=== PATIENT | female | born 1960 | race African-American/Black ===

== ENCOUNTER 2017-01-21 11:59 | Inpatient (IN) | payer MEDICARE, OTHER ==
[~2017-01-21] VITALS: Ht 170.2 cm; Wt 108.4 kg
[~2017-01-21 11:59] MED LIST: ALBU2.5V14 NEB; AMLO5TAB4 PO; CARI350T PO; HYDR-971 PO; LEVO500T59 PO; LOSA100T2 PO; MOME13HF IH; NAPR500T8 PO; Nicotine TD; OXYC-327 PO; OXYC-328 PO; OXYC10TA45 PO; OXYC15TA PO; PRED50TA PO; PROAIR HFA8.5 GM IH; TRIA1CAP PO
[2017-01-21 13:00] VITALS: BP 138/92
[2017-01-21 14:49] VITALS: BP 132/97
[2017-01-21] MEDS ORDERED: oxyCODONE/APAP 7.5/325 1 TAB TABLET PO PRN (15:00)
[2017-01-21] MEDS ORDERED: HYDROcodone/APAP 5/325MG 1 TAB TABLET PO PRN ×2 (15:00→15:15)
[2017-01-21] MEDS ORDERED: NON FORMULARY ITEM (Albuterol Sulfate (Proair Hfa Inhaler) 2 PUFF) IH PRN (15:00)
[2017-01-21 15:11] LABS: BASO # 0.1 x10^3/uL (0.0-0.2); BASO % 1 % (0-3); EOS % 0 % (0-3); HEMOGLOBIN 12.1 g/dL (12.0-15.5); LYMPH # 7.5 x10^3/uL (1.0-4.8); LYMPH % 40 % (24-48); MEAN CORPUSCULAR HEMOGLOBIN 23 pg (25-35); MEAN CORPUSCULAR HGB CONC 31 g/dL (31-37); MEAN CORPUSCULAR VOLUME 75 fL (79-100); MONO % 7 % (0-9); NEUT % 52 % (31-73); PLATELET COUNT 418 x10^3/uL (140-400); RED CELL DISTRIBUTION WIDTH 22.3 % (11.5-14.5); WHITE BLOOD COUNT 18.7 x10^3/uL (4.0-11.0)
--- NOTE | 2017-01-21 15:12 | EKG ---
[facility] [address] [place] [address] Test Date: 2017-01-21 Test Time: 15:10:14 Pat Name: IRENE OLSEN Department: Room: 8 Gender: F Child Care Nurse: LYDIA : 1960 Requested By: LUIZ BENDER Order Number: [id number] Reading MD: Irving Hoffman Measurements Intervals [place] Rate: 88 P: 46 TN: 136 QRS: 59 QRSD: 90 T: 57 QT: 354 QTc: 432 Interpretive Statements SINUS RHYTHM QRS(T) CONTOUR ABNORMALITY CONSIDER ANTEROLATERAL MYOCARDIAL DAMAGE CONSIDER INFERIOR MYOCARDIAL DAMAGE POSSIBLY ABNORMAL ECG RI6.01 Compared to ECG 09/28/2015 11:00:52 Sinus tachycardia no longer present Left ventricular hypertrophy Electronically Signed On 01-22-2017 15:49:32 CDT by Irving Hoffman
[2017-01-21 15:16] VITALS: BP 132/97
[2017-01-21] MEDS: CARISOPRODOL 350 MG TABLET PO SCH (15:26)
[2017-01-21] MEDS: oxyCODONE/APAP 7.5/325 1 TAB TABLET PO PRN ×2 (15:26→21:01)
[2017-01-21] MEDS: LOSARTAN POTASSIUM 50 MG TABLET. PO SCH (15:26)
[2017-01-21] MEDS: NICOTINE 14MG PATCH. TD SCH (15:27)
[2017-01-21 15:28] LABS: ALBUMIN 3.4 g/dL (3.4-5.0); ALBUMIN/GLOBULIN RATIO 0.8 (1.0-1.7); CALCIUM 8.5 mg/dL (8.5-10.1); CREATININE 0.8 mg/dL (0.6-1.0); GFR 90.1; POTASSIUM 3.2 mmol/L (3.5-5.1); TOTAL BILIRUBIN 0.3 mg/dL (0.2-1.0); TOTAL PROTEIN 7.6 g/dL (6.4-8.2)
[2017-01-21] MEDS: IV NORMAL SALINE 1000ML BAG 1,000 ML IV SCH (15:37)
[2017-01-21] MEDS: methylPREDNISolone SOD SUCC PF 125 MG/2 ML VIAL. IV SCH ×2 (15:38→21:01)
[2017-01-21] MEDS: IPRATRPIUM/ALBUTEROL 0.5/2.5MG 3 ML NEBU. NEB SCH ×2 (15:44→19:48)
--- NOTE | 2017-01-21 15:44 | RAD ---
Chest, 2 views, 01/21/2017: History: Possible pneumonia Comparison is made to a study from 11/28/2015. The heart size and pulmonary vascularity are normal. No pulmonary infiltrates are seen. There is no evidence of pleural fluid. There is a moderate lower thoracic scoliosis with mild multilevel degenerative changes. IMPRESSION: No acute cardiopulmonary abnormality is detected.
[2017-01-21] MEDS ORDERED: ALBUTEROL SULFATE 2.5 MG/3 ML NEBU. NEB PRN (15:45)
[2017-01-21 15:57] LABS: ANISOCYTOSIS MOD; HYPOCHROMIA SLIGHT; MICROCYTOSIS SLIGHT; OVALOCYTES FEW; PLT ESTIMATE INCREASED (ADEQUATE); POIKILOCYTOSIS SLIGHT; SCHISTOCYTES OCC; TARGET CELLS FEW
[2017-01-21] MEDS: AZITHROMYCIN 500 MG in IV NORMAL SALINE 250ML 250 ML IV SCH (16:56)
[2017-01-21] MEDS ORDERED: NON FORMULARY ITEM (Albuterol Sulfate (Albuterol Sulfate Conc Neb Soln) 2.5 MG) NEB SCH (17:00)
[2017-01-21] MEDS: ENOXAPARIN 40 MG/0.4 ML SYRINGE. SQ SCH (17:33)
--- NOTE | 2017-01-21 18:28 | PDOC ---
PULMONARY PROGRESS NOTES Vitals Vital Signs Date Time Temp Pulse Resp B/P (MAP) Pulse Ox O2 Delivery O2 Flow Rate FiO2 01/21/17 17:32 Room Air 01/21/17 15:45 95 01/21/17 15:26 99 132/97 01/21/17 15:16 97.8 97.8 01/21/17 14:49 18 General: Alert, No acute distress Lungs: Wheezing Cardiovascular: S1 Abdomen: Soft Extremities: No Edema Labs Laboratory Tests Test 01/21/17 14:55 White Blood Count 18.7 x10^3/uL (4.0-11.0) Red Blood Count 5.20 x10^6/uL (3.50-5.40) Hemoglobin 12.1 g/dL (12.0-15.5) Hematocrit 39.0 % (36.0-47.0) Mean Corpuscular Volume 75 fL (79-100) Mean Corpuscular Hemoglobin 23 pg (25-35) Mean Corpuscular Hemoglobin Concent 31 g/dL (31-37) Red Cell Distribution Width 22.3 % (11.5-14.5) Platelet Count 418 x10^3/uL (140-400) Neutrophils (%) (Auto) 52 % (31-73) Lymphocytes (%) (Auto) 40 % (24-48) Monocytes (%) (Auto) 7 % (0-9) Eosinophils (%) (Auto) 0 % (0-3) Basophils (%) (Auto) 1 % (0-3) Neutrophils # (Auto) 9.7 x10^3uL (1.8-7.7) Lymphocytes # (Auto) 7.5 x10^3/uL (1.0-4.8) Monocytes # (Auto) 1.3 x10^3/uL (0.0-1.1) Eosinophils # (Auto) 0.1 x10^3/uL (0.0-0.7) Basophils # (Auto) 0.1 x10^3/uL (0.0-0.2) Platelet Estimate Increased (ADEQUATE) Hypochromasia Slight Poikilocytosis Slight Anisocytosis Mod Microcytosis Slight Target Cells Few Ovalocytes Few Schistocytes Occ Sodium Level 141 mmol/L (136-145) Potassium Level 3.2 mmol/L (3.5-5.1) Chloride Level 103 mmol/L (98-107) Carbon Dioxide Level 32 mmol/L (21-32) Anion Gap 6 (6-14) Blood Urea Nitrogen 15 mg/dL (7-20) Creatinine 0.8 mg/dL (0.6-1.0) Estimated GFR (Cockcroft-Gault) 90.1 BUN/Creatinine Ratio 19 (6-20) Glucose Level 97 mg/dL (70-99) Calcium Level 8.5 mg/dL (8.5-10.1) Total Bilirubin 0.3 mg/dL (0.2-1.0) Aspartate Amino Transf (AST/SGOT) 12 U/L (15-37) Alanine Aminotransferase (ALT/SGPT) 18 U/L (14-59) Alkaline Phosphatase 88 U/L (46-116) Total Protein 7.6 g/dL (6.4-8.2) Albumin 3.4 g/dL (3.4-5.0) Albumin/Globulin Ratio 0.8 (1.0-1.7) Laboratory Tests Test 01/21/17 14:55 White Blood Count 18.7 x10^3/uL (4.0-11.0) Red Blood Count 5.20 x10^6/uL (3.50-5.40) Hemoglobin 12.1 g/dL (12.0-15.5) Hematocrit 39.0 % (36.0-47.0) Mean Corpuscular Volume 75 fL (79-100) Mean Corpuscular Hemoglobin 23 pg (25-35) Mean Corpuscular Hemoglobin Concent 31 g/dL (31-37) Red Cell Distribution Width 22.3 % (11.5-14.5) Platelet Count 418 x10^3/uL (140-400) Neutrophils (%) (Auto) 52 % (31-73) Lymphocytes (%) (Auto) 40 % (24-48) Monocytes (%) (Auto) 7 % (0-9) Eosinophils (%) (Auto) 0 % (0-3) Basophils (%) (Auto) 1 % (0-3) Neutrophils # (Auto) 9.7 x10^3uL (1.8-7.7) Lymphocytes # (Auto) 7.5 x10^3/uL (1.0-4.8) Monocytes # (Auto) 1.3 x10^3/uL (0.0-1.1) Eosinophils # (Auto) 0.1 x10^3/uL (0.0-0.7) Basophils # (Auto) 0.1 x10^3/uL (0.0-0.2) Platelet Estimate Increased (ADEQUATE) Hypochromasia Slight Poikilocytosis Slight Anisocytosis Mod Microcytosis Slight Target Cells Few Ovalocytes Few Schistocytes Occ Sodium Level 141 mmol/L (136-145) Potassium Level 3.2 mmol/L (3.5-5.1) Chloride Level 103 mmol/L (98-107) Carbon Dioxide Level 32 mmol/L (21-32) Anion Gap 6 (6-14) Blood Urea Nitrogen 15 mg/dL (7-20) Creatinine 0.8 mg/dL (0.6-1.0) Estimated GFR (Cockcroft-Gault) 90.1 BUN/Creatinine Ratio 19 (6-20) Glucose Level 97 mg/dL (70-99) Calcium Level 8.5 mg/dL (8.5-10.1) Total Bilirubin 0.3 mg/dL (0.2-1.0) Aspartate Amino Transf (AST/SGOT) 12 U/L (15-37) Alanine Aminotransferase (ALT/SGPT) 18 U/L (14-59) Alkaline Phosphatase 88 U/L (46-116) Total Protein 7.6 g/dL (6.4-8.2) Albumin 3.4 g/dL (3.4-5.0) Albumin/Globulin Ratio 0.8 (1.0-1.7) Medications Active Scripts Medications Dose Route/Sig Max Daily Dose Days Date Category Naproxen 500 Mg Tablet.dr 1 Tab PO BID 06/19/16 Rx [place] 5-325 Tablet (Acetaminophen/Hydrocodone Bitart) 1 Each Tablet 1-2 Tab PO Q4-6HRS 06/19/16 Rx Percocet 7.5-325 Mg Tablet (Oxycodone/Acetaminophen) 1 Each Tablet 1-2 Tab PO Q4HRS PRN 12/07/15 Reported Oxycontin (Oxycodone HCl) 10 Mg Tab.er.12h 10 Mg PO Q12HR 09/29/15 Rx [Nicotine] 1 PATCH Patch 1 Patch TD DAILY 03/31/14 Rx Proair Hfa Inhaler (Albuterol Sulfate) 8.5 Gm Hfa.aer.ad 2 Puff IH PRN Q4HRS PRN 03/29/14 Reported Albuterol Sulfate Conc Neb Soln (Albuterol Sulfate) 2.5 Mg/0.5 Ml Vial.neb 2.5 Mg NEB QID 03/29/14 Reported Dulera 200 Mcg/5 Mcg Inhaler (Mometasone/Formoterol) 13 Gm Hfa.aer.ad 2 Puff IH BID 03/29/14 Reported Norvasc (Amlodipine Besylate) 5 Mg Tablet 10 Mg PO BID 03/29/14 Reported Soma (Carisoprodol) 350 Mg Tablet 350 Mg PO TID&HS 03/29/14 Reported Cozaar (Losartan Potassium) 100 Mg Tablet 100 Mg PO DAILY 03/29/14 Reported Impression . FULL CONSULT TO BE DICTATED AECOPD TOBACCO USE PT FAILED OUT PATIENT TREATMENT SEE ORDERS WAS SEEN IN ER AT [facility] LAST WEEK REBEL PLUNKETT MD Jan 21, 2017 18:28
[2017-01-21 19:00] VITALS: BP 142/76
[2017-01-21] MEDS: BUDESONIDE 0.5 MG/2 ML NEBU. NEB SCH (19:48)
[2017-01-21] MEDS: ALBUTEROL SULFATE 2.5 MG/3 ML NEBU. NEB SCH (20:00)
[2017-01-21] MEDS: NAPROXEN 500 MG TABLET PO SCH (21:00)
[2017-01-21] MEDS ORDERED: NON FORMULARY ITEM (Mometasone/Formoterol (Dulera 200 Mcg/5 Mcg Inhaler) 2 PUFF) IH SCH (21:00)
[2017-01-21] MEDS: oxyCODONE ER 10 MG TAB.ER.12H PO SCH (21:00)
[2017-01-21] MEDS: amLODIPine BESYLATE 10 MG TABLET PO SCH (21:03)
[2017-01-21 23:00] VITALS: BP 139/79
[2017-01-22] MEDS: IV NORMAL SALINE 1000ML BAG 1,000 ML IV SCH ×3 (00:15→20:15)
[2017-01-22] MEDS: oxyCODONE/APAP 7.5/325 1 TAB TABLET PO PRN ×2 (02:12→08:48)
[2017-01-22] MEDS: methylPREDNISolone SOD SUCC PF 125 MG/2 ML VIAL. IV SCH ×3 (06:25→20:20)
[2017-01-22 07:00] VITALS: BP 142/80
[2017-01-22] MEDS: BUDESONIDE 0.5 MG/2 ML NEBU. NEB SCH ×2 (07:14→19:40)
[2017-01-22] MEDS: IPRATRPIUM/ALBUTEROL 0.5/2.5MG 3 ML NEBU. NEB SCH ×4 (07:14→19:40)
[2017-01-22] MEDS: ALBUTEROL SULFATE 2.5 MG/3 ML NEBU. NEB SCH (07:16)
[2017-01-22] MEDS: amLODIPine BESYLATE 10 MG TABLET PO SCH ×2 (08:41→20:19)
[2017-01-22] MEDS: LOSARTAN POTASSIUM 50 MG TABLET. PO SCH (08:42)
[2017-01-22] MEDS: NAPROXEN 500 MG TABLET PO SCH ×2 (08:42→20:18)
[2017-01-22] MEDS: oxyCODONE ER 10 MG TAB.ER.12H PO SCH ×2 (08:43→22:43)
[2017-01-22] MEDS: CARISOPRODOL 350 MG TABLET PO SCH (08:43)
[2017-01-22] MEDS: NICOTINE 14MG PATCH. TD SCH (08:44)
--- NOTE | 2017-01-22 09:00 | PDOC ---
PULMONARY PROGRESS NOTES Subjective FEELS BETTER Vitals Vital Signs Date Time Temp Pulse Resp B/P (MAP) Pulse Ox O2 Delivery O2 Flow Rate FiO2 01/22/17 08:48 18 Room Air 01/22/17 08:42 99 142/80 01/22/17 07:15 97 01/22/17 07:00 96.8 96.8 General: Alert, No acute distress Lungs: Wheezing Cardiovascular: S1 Abdomen: Soft Extremities: No Edema Labs Laboratory Tests Test 01/21/17 14:55 White Blood Count 18.7 x10^3/uL (4.0-11.0) Red Blood Count 5.20 x10^6/uL (3.50-5.40) Hemoglobin 12.1 g/dL (12.0-15.5) Hematocrit 39.0 % (36.0-47.0) Mean Corpuscular Volume 75 fL (79-100) Mean Corpuscular Hemoglobin 23 pg (25-35) Mean Corpuscular Hemoglobin Concent 31 g/dL (31-37) Red Cell Distribution Width 22.3 % (11.5-14.5) Platelet Count 418 x10^3/uL (140-400) Neutrophils (%) (Auto) 52 % (31-73) Lymphocytes (%) (Auto) 40 % (24-48) Monocytes (%) (Auto) 7 % (0-9) Eosinophils (%) (Auto) 0 % (0-3) Basophils (%) (Auto) 1 % (0-3) Neutrophils # (Auto) 9.7 x10^3uL (1.8-7.7) Lymphocytes # (Auto) 7.5 x10^3/uL (1.0-4.8) Monocytes # (Auto) 1.3 x10^3/uL (0.0-1.1) Eosinophils # (Auto) 0.1 x10^3/uL (0.0-0.7) Basophils # (Auto) 0.1 x10^3/uL (0.0-0.2) Platelet Estimate Increased (ADEQUATE) Hypochromasia Slight Poikilocytosis Slight Anisocytosis Mod Microcytosis Slight Target Cells Few Ovalocytes Few Schistocytes Occ Sodium Level 141 mmol/L (136-145) Potassium Level 3.2 mmol/L (3.5-5.1) Chloride Level 103 mmol/L (98-107) Carbon Dioxide Level 32 mmol/L (21-32) Anion Gap 6 (6-14) Blood Urea Nitrogen 15 mg/dL (7-20) Creatinine 0.8 mg/dL (0.6-1.0) Estimated GFR (Cockcroft-Gault) 90.1 BUN/Creatinine Ratio 19 (6-20) Glucose Level 97 mg/dL (70-99) Calcium Level 8.5 mg/dL (8.5-10.1) Total Bilirubin 0.3 mg/dL (0.2-1.0) Aspartate Amino Transf (AST/SGOT) 12 U/L (15-37) Alanine Aminotransferase (ALT/SGPT) 18 U/L (14-59) Alkaline Phosphatase 88 U/L (46-116) Total Protein 7.6 g/dL (6.4-8.2) Albumin 3.4 g/dL (3.4-5.0) Albumin/Globulin Ratio 0.8 (1.0-1.7) Laboratory Tests Test 01/21/17 14:55 White Blood Count 18.7 x10^3/uL (4.0-11.0) Red Blood Count 5.20 x10^6/uL (3.50-5.40) Hemoglobin 12.1 g/dL (12.0-15.5) Hematocrit 39.0 % (36.0-47.0) Mean Corpuscular Volume 75 fL (79-100) Mean Corpuscular Hemoglobin 23 pg (25-35) Mean Corpuscular Hemoglobin Concent 31 g/dL (31-37) Red Cell Distribution Width 22.3 % (11.5-14.5) Platelet Count 418 x10^3/uL (140-400) Neutrophils (%) (Auto) 52 % (31-73) Lymphocytes (%) (Auto) 40 % (24-48) Monocytes (%) (Auto) 7 % (0-9) Eosinophils (%) (Auto) 0 % (0-3) Basophils (%) (Auto) 1 % (0-3) Neutrophils # (Auto) 9.7 x10^3uL (1.8-7.7) Lymphocytes # (Auto) 7.5 x10^3/uL (1.0-4.8) Monocytes # (Auto) 1.3 x10^3/uL (0.0-1.1) Eosinophils # (Auto) 0.1 x10^3/uL (0.0-0.7) Basophils # (Auto) 0.1 x10^3/uL (0.0-0.2) Platelet Estimate Increased (ADEQUATE) Hypochromasia Slight Poikilocytosis Slight Anisocytosis Mod Microcytosis Slight Target Cells Few Ovalocytes Few Schistocytes Occ Sodium Level 141 mmol/L (136-145) Potassium Level 3.2 mmol/L (3.5-5.1) Chloride Level 103 mmol/L (98-107) Carbon Dioxide Level 32 mmol/L (21-32) Anion Gap 6 (6-14) Blood Urea Nitrogen 15 mg/dL (7-20) Creatinine 0.8 mg/dL (0.6-1.0) Estimated GFR (Cockcroft-Gault) 90.1 BUN/Creatinine Ratio 19 (6-20) Glucose Level 97 mg/dL (70-99) Calcium Level 8.5 mg/dL (8.5-10.1) Total Bilirubin 0.3 mg/dL (0.2-1.0) Aspartate Amino Transf (AST/SGOT) 12 U/L (15-37) Alanine Aminotransferase (ALT/SGPT) 18 U/L (14-59) Alkaline Phosphatase 88 U/L (46-116) Total Protein 7.6 g/dL (6.4-8.2) Albumin 3.4 g/dL (3.4-5.0) Albumin/Globulin Ratio 0.8 (1.0-1.7) Medications Active Scripts Medications Dose Route/Sig Max Daily Dose Days Date Category Naproxen 500 Mg Tablet.dr 1 Tab PO BID 06/19/16 Rx [place] 5-325 Tablet (Acetaminophen/Hydrocodone Bitart) 1 Each Tablet 1-2 Tab PO Q4-6HRS 06/19/16 Rx Percocet 7.5-325 Mg Tablet (Oxycodone/Acetaminophen) 1 Each Tablet 1-2 Tab PO Q4HRS PRN 12/07/15 Reported Oxycontin (Oxycodone HCl) 10 Mg Tab.er.12h 10 Mg PO Q12HR 09/29/15 Rx [Nicotine] 1 PATCH Patch 1 Patch TD DAILY 03/31/14 Rx Proair Hfa Inhaler (Albuterol Sulfate) 8.5 Gm Hfa.aer.ad 2 Puff IH PRN Q4HRS PRN 03/29/14 Reported Albuterol Sulfate Conc Neb Soln (Albuterol Sulfate) 2.5 Mg/0.5 Ml Vial.neb 2.5 Mg NEB QID 03/29/14 Reported Dulera 200 Mcg/5 Mcg Inhaler (Mometasone/Formoterol) 13 Gm Hfa.aer.ad 2 Puff IH BID 03/29/14 Reported Norvasc (Amlodipine Besylate) 5 Mg Tablet 10 Mg PO BID 03/29/14 Reported Soma (Carisoprodol) 350 Mg Tablet 350 Mg PO TID&HS 03/29/14 Reported Cozaar (Losartan Potassium) 100 Mg Tablet 100 Mg PO DAILY 03/29/14 Reported Impression . AECOPD TOBACCO USE PT FAILED OUT PATIENT TREATMENT SEE ORDERS WAS SEEN IN ER AT [facility] LAST WEEK Plan . IMPROVING D/C REBEL GOODWIN MD Jan 22, 2017 09:00
--- NOTE | 2017-01-22 09:55 | PDOC ---
Provider Note Provider Note Pt seen .H&P dictated. #[id number] LUIZ BENDER MD Jan 22, 2017 09:55
[2017-01-22] MEDS ORDERED: POTASSIUM CHLORIDE 20 MEQ TABLET.ER. PO ONE ×2 (10:00→12:00)
[2017-01-22 10:30] VITALS: BP 148/92
--- NOTE | 2017-01-22 11:11 | HP ---
ADMIT DATE: 01/21/2017 REASON FOR ADMISSION TO THE HOSPITAL: Chronic obstructive pulmonary disease with acute exacerbation. HISTORY OF PRESENT ILLNESS: The patient is a 56-year-old female. The patient has a history of chronic obstructive pulmonary disease, smoker. She has been to the [facility] Emergency Room 3 days ago and she was given antibiotics and prednisone. The patient was still wheezing, short of breath, very tired, was given breathing treatment in the office without improvement, was admitted to the hospital. White count was elevated to 18,000. Chest x-ray was negative for infiltrates. The patient was admitted for IV antibiotics, IV Solu-Medrol, DuoNeb, failure of outpatient treatment. PAST MEDICAL HISTORY: Has a history of hypertension, COPD, bronchitis, smoker, arthritis. PAST SURGICAL HISTORY: Carpal tunnel surgery, left knee surgery. FAMILY HISTORY: Positive for heart disease in the brother and high blood pressure in parents. ALLERGIES: No known allergies. MEDICATIONS AT HOME: She is on DuoNeb 4 times daily at home, albuterol inhaler at home, amlodipine 5 mg tablets 10 mg twice a day, Soma 350 mg 3 times daily, [place] 5/325 mg daily, losartan 100 mg daily, Dulera 2 puffs twice a day, naproxen 500 mg twice a day, oxycodone 10 mg twice a day, Percocet 7.5 mg q. 6 hours p.r.n., Nicoderm patch 14 mg daily. PERSONAL HISTORY: Smoked for 40 years at least 1-2 packs. Denies alcohol. Denies street drugs. She is on chronic narcotic pain medications. REVIEW OF SYSTEMS: CARDIAC: No chest pain. LUNGS: Coughs, wheezing, sputum, dizzy, short of breath. GASTROINTESTINAL: No nausea or vomiting. Rest of the 14-system was reviewed and negative. PHYSICAL EXAMINATION: GENERAL: The patient was ill-looking yesterday. VITAL SIGNS: Temperature 98, pulse 92, respirations 18, blood pressure 138/92, 95% on room air. HEENT: Head is atraumatic. Pupils equal. Oral cavity: Congested posterior pharynx, mild. NECK: Supple. Thyroid not enlarged. JVD not elevated. CHEST: Symmetrical. CARDIOVASCULAR: S1, S2. LUNGS: Bilateral wheezing, both inspiratory and expiratory, both anterior and posterior. ABDOMEN: Soft, no mass palpable. EXTERNAL GENITALIA: No Ann. RECTAL: Deferred. EXTREMITIES: No calf tenderness. The patient has a scar of left knee replacement, has trace edema at the ankles. NEUROLOGIC: No focal deficit. Moves all extremities. LABORATORY DATA: Shows a white count of 19,000; hemoglobin 12; platelets 418. Electrolytes show sodium 141, potassium 3.2, chloride 103, bicarbonate 32, BUN 15, creatinine 0.8, glucose 97. LFTs were normal. Chest x-ray, no acute infiltrations. EKG done, report is pending. FINAL IMPRESSION: 1. Chronic obstructive pulmonary disease with acute bronchitis. 2. Chronic obstructive pulmonary disease. 3. Smoking addiction. 4. Hypertension. 5. Knee replacements. PLAN: At this time, admit to the hospital and IV Solu-Medrol 125 mg q. 8 hours, Levaquin and Zithromax, IV fluids, and DuoNeb 4 times daily. Pulmonary consult. Smoking counseling was done, nicotine patch, DVT prophylaxis. LUIZ BENDER MD DR: ANDRIY/carolee JOB#: [id number] / [id number]
[2017-01-22] MEDS: oxyCODONE IR 5 MG TABLET PO PRN ×3 (13:02→22:44)
[2017-01-22 15:00] VITALS: BP 144/74
[2017-01-22] MEDS: AZITHROMYCIN 500 MG in IV NORMAL SALINE 250ML 250 ML IV SCH (16:16)
[2017-01-22] MEDS: ENOXAPARIN 40 MG/0.4 ML SYRINGE. SQ SCH (16:17)
[2017-01-22 19:00] VITALS: BP 142/85
[2017-01-22] MEDS ORDERED: ZOLPIDEM 5 MG TABLET. PO PRN (20:45)
--- NOTE | 2017-01-22 22:27 | CONS ---
DATE OF CONSULTATION: 01/21/2017 ATTENDING PHYSICIAN: Dr. Anaya. REASON FOR CONSULTATION: The patient seen in pulmonary consultation at the request of Dr. Anaya for respiratory distress and failed outpatient treatment. The patient was seen in the Emergency Room at [facility] 2 days ago. HISTORY OF PRESENT ILLNESS: The patient is a 56-year-old, who was seen at [facility] for 2-3 days prior to being admitted to the hospital. She failed outpatient treatment, given antibiotics and prednisone. She was told that she had pneumonia. She return to Dr. Anaya's office today of admission and was severely short of breath, wheezing and using accessory muscles. She was directly admitted. When I saw her, there was no chest x-ray available. The white count was elevated. The patient was started on IV antibiotics, IV Solu-Medrol. She had a cough, mostly nonproductive. She was in some mild respiratory distress, audible wheezes. No hemoptysis. No fever or chills. PAST MEDICAL HISTORY: Hypertension, COPD of the chronic bronchitic type, tobacco dependence and arthritis. PAST SURGICAL HISTORY: Status post carpal tunnel release and left knee surgery. FAMILY HISTORY: Remarkable for hypertension. ALLERGIES: No known drug allergies. MEDICATIONS: List from home was reviewed. Please see the MRAD. She was on Dulera, no oxygen supplementation. REVIEW OF SYSTEMS: As indicated above, otherwise, a 10-point system was reviewed and negative. SOCIAL HISTORY: She has been smoking 1-2 packs of cigarettes a day for 40 years. Denies any alcohol use. PHYSICAL EXAMINATION: GENERAL: The patient has audible wheezes. She appeared to be in mild respiratory distress. VITAL SIGNS: O2 saturation on room air was 92%. HEENT: Eyes, the sclerae were nonicteric. NECK: Jugular venous distention was not elevated. No lymphadenopathy. CHEST: Full expansion. LUNGS: Both inspiratory and expiratory wheeze with coarse breath sounds, scattered rhonchi. CARDIOVASCULAR: Regular rate and rhythm with S1, S2, no S3. ABDOMEN: Soft, nontender, nondistended. EXTREMITIES: No clubbing, cyanosis or edema. NEUROLOGIC: The patient was awake, alert, following commands. A detailed neuro exam was not performed. LABORATORY DATA: White count was elevated at 18,000. Electrolytes were noted. Chest x-ray was pending. IMPRESSION: 1. Acute respiratory distress secondary to acute exacerbation of chronic obstructive pulmonary disease. 2. Acute exacerbation of chronic obstructive pulmonary disease. 3. Nonspecific acute bronchitis. 4. Possible pneumonia. 5. Tobacco dependence. 6. Hypertension. PLAN: 1. The patient will be initiated on IV steroids, IV antibiotics, she failed outpatient treatment. She was seen in the Emergency Room 3 days ago and discharged home. 2. Continue nebulized treatments. 3. The patient was instructed on the importance of discontinuing tobacco use. I do appreciate the privilege in sharing in the patient's care. REBEL PLUNKETT MD DR: ALIE/carolee JOB#: [id number] / [id number]
[2017-01-22 23:00] VITALS: BP 135/82
[2017-01-23] MEDS: oxyCODONE IR 5 MG TABLET PO PRN ×2 (02:52→08:33)
[2017-01-23 05:55] LABS: BASO % 0 % (0-3); EOS % 0 % (0-3); HEMATOCRIT 35.1 % (36.0-47.0); HEMOGLOBIN 11.2 g/dL (12.0-15.5); LYMPH # 1.6 x10^3/uL (1.0-4.8); LYMPH % 7 % (24-48); MEAN CORPUSCULAR HEMOGLOBIN 24 pg (25-35); MEAN CORPUSCULAR HGB CONC 32 g/dL (31-37); MEAN CORPUSCULAR VOLUME 74 fL (79-100); MONO % 6 % (0-9); NEUT % 87 % (31-73); PLATELET COUNT 406 x10^3/uL (140-400); RED BLOOD COUNT 4.72 x10^6/uL (3.50-5.40); RED CELL DISTRIBUTION WIDTH 22.4 % (11.5-14.5); WHITE BLOOD COUNT 21.8 x10^3/uL (4.0-11.0)
[2017-01-23] MEDS: methylPREDNISolone SOD SUCC PF 125 MG/2 ML VIAL. IV SCH (06:07)
[2017-01-23 06:23] LABS: CALCIUM 8.5 mg/dL (8.5-10.1); CREATININE 0.7 mg/dL (0.6-1.0); GFR 105.1; POTASSIUM 4.8 mmol/L (3.5-5.1)
[2017-01-23 07:00] VITALS: BP 145/89
[2017-01-23] MEDS: IPRATRPIUM/ALBUTEROL 0.5/2.5MG 3 ML NEBU. NEB SCH (07:19)
[2017-01-23] MEDS: BUDESONIDE 0.5 MG/2 ML NEBU. NEB SCH (07:19)
[2017-01-23 08:11] LABS: HYPOCHROMIA PRESENT; MICROCYTOSIS PRESENT; PLT ESTIMATE INCREASED (ADEQUATE); TARGET CELLS PRESENT
--- NOTE | 2017-01-23 08:31 | PDOC ---
PROGRESS NOTES Subjective Subjective feeling better ready to go home Objective Objective Vital Signs Date Time Temp Pulse Resp B/P (MAP) Pulse Ox O2 Delivery O2 Flow Rate FiO2 01/23/17 07:22 96 Room Air 01/23/17 07:00 98.2 90 20 145/89 (107) 98.2 Intake and Output 01/23/17 07:00 Intake Total 1990 ml Balance 1990 ml Intake Oral 640 ml IV Total 1350 ml # Voids 6 Physical Exam Abdomen: Normal bowel sounds, Soft Heart: Regular rate, Normal S1, Normal S2 Extremities: No edema General: Oriented X3 HEENT: Atraumatic Lungs: Other (dec wheezing) MUSCULOSKELETAL: No deformity, Osteoarthritic changes both hands, Other Neck: Supple Neuro: Normal speech Psych/Mental Status: Mental status NL Skin: No breakdown Assessment Assessment FINAL IMPRESSION: 1. Chronic obstructive pulmonary disease with acute bronchitis. 2. Chronic obstructive pulmonary disease. 3. Smoking addiction. 4. Hypertension. 5. Knee replacements. 6. Failure of out pt treatment PLAN: home today Levaquin dialy 500 mg pox5 days prednisone 50 mg oral x7 days nicoderm patch. smoking counseling done. cxr -ve inc wbc 21 due to steroids. At this time, admit to the hospital and IV Solu-Medrol 125 mg q. 8 hours, Levaquin and Zithromax, IV fluids, and DuoNeb 4 times daily. Pulmonary consult. Smoking counseling was done, nicotine patch, DVT prophylaxis. Problems: Comment Review of Relevant I have reviewed the following items tari (where applicable) has been applied. Labs Laboratory Tests Test 01/23/17 05:25 White Blood Count 21.8 x10^3/uL (4.0-11.0) Red Blood Count 4.72 x10^6/uL (3.50-5.40) Hemoglobin 11.2 g/dL (12.0-15.5) Hematocrit 35.1 % (36.0-47.0) Mean Corpuscular Volume 74 fL (79-100) Mean Corpuscular Hemoglobin 24 pg (25-35) Mean Corpuscular Hemoglobin Concent 32 g/dL (31-37) Red Cell Distribution Width 22.4 % (11.5-14.5) Platelet Count 406 x10^3/uL (140-400) Neutrophils (%) (Auto) 87 % (31-73) Lymphocytes (%) (Auto) 7 % (24-48) Monocytes (%) (Auto) 6 % (0-9) Eosinophils (%) (Auto) 0 % (0-3) Basophils (%) (Auto) 0 % (0-3) Neutrophils # (Auto) 18.9 x10^3uL (1.8-7.7) Lymphocytes # (Auto) 1.6 x10^3/uL (1.0-4.8) Monocytes # (Auto) 1.4 x10^3/uL (0.0-1.1) Eosinophils # (Auto) 0.0 x10^3/uL (0.0-0.7) Basophils # (Auto) 0.0 x10^3/uL (0.0-0.2) Segmented Neutrophils % 85 % (35-66) Band Neutrophils % 1 % (0-9) Lymphocytes % 9 % (24-48) Monocytes % 5 % (0-10) Platelet Estimate Increased (ADEQUATE) Hypochromasia Present Microcytosis Present Target Cells Present Sodium Level 142 mmol/L (136-145) Potassium Level 4.8 mmol/L (3.5-5.1) Chloride Level 107 mmol/L (98-107) Carbon Dioxide Level 29 mmol/L (21-32) Anion Gap 6 (6-14) Blood Urea Nitrogen 13 mg/dL (7-20) Creatinine 0.7 mg/dL (0.6-1.0) Estimated GFR (Cockcroft-Gault) 105.1 Glucose Level 123 mg/dL (70-99) Calcium Level 8.5 mg/dL (8.5-10.1) Microbiology 01/22/17 Gram Stain - Final, Complete Medications Current Medications Oxycodone HCl (Roxicodone) 15 mg PRN Q4HRS PRN PO PAIN Last administered on 01/23 02:52; Start 01/22/17 at 12:00 Potassium Chloride (Klor-Con) 20 meq 1X ONCE PO Last administered on 01/22/17 13:59; Start 01/22/17 at 12:00; Stop 01/22/17 at 12:01; Status DC Potassium Chloride (Klor-Con) 40 meq 1X ONCE PO Last administered on 01/22/17 12:37; Start 01/22/17 at 10:00; Stop 01/22/17 at 10:01; Status DC Zolpidem Tartrate (Ambien) 5 mg PRN QHS PRN PO INSOMNIA, MAY REPEAT IN 1HR Last administered on 01/22/17t 22:43; Start 01/22/17 at 20:45 Vitals/I & O Vital Sign - Last 24 Hours 01/22/17 01/22/17 01/22/17 01/22/17 08:41 08:42 08:43 08:48 Pulse 99 99 Resp 18 18 B/P (MAP) 142/80 142/80 O2 Delivery Room Air 01/22/17 01/22/17 01/22/17 01/22/17 09:48 10:30 11:04 12:43 Temp 97.5 97.5 Pulse 116 Resp 18 18 B/P (MAP) 148/92 (110) Pulse Ox 95 O2 Delivery Room Air Room Air Room Air 01/22/17 01/22/17 01/22/17 01/22/17 13:02 14:02 15:00 15:14 Temp 97.9 97.9 Pulse 120 Resp 20 18 B/P (MAP) 144/74 (97) Pulse Ox 94 O2 Delivery Room Air Room Air 01/22/17 01/22/17 01/22/17 01/22/17 18:28 19:00 19:42 20:00 Temp 98.5 98.5 Pulse 113 Resp 18 21 B/P (MAP) 142/85 (104) Pulse Ox 95 O2 Delivery Room Air Room Air Room Air Room Air 01/22/17 01/22/17 01/22/17 01/22/17 20:19 22:43 22:44 23:00 Temp 98.5 98.5 Pulse 113 101 Resp 21 B/P (MAP) 142/85 135/82 (99) Pulse Ox 94 94 95 O2 Delivery Room Air Room Air Room Air 01/22/17 01/23/17 01/23/17 01/23/17 23:44 02:52 07:00 07:21 Temp 98.2 98.2 Pulse 90 Resp 18 20 B/P (MAP) 145/89 (107) Pulse Ox 95 95 95 96 O2 Delivery Room Air Room Air Room Air Room Air 01/23/17 07:22 Pulse Ox 96 O2 Delivery Room Air Intake and Output 01/22/17 01/22/17 01/23/17 15:00 23:00 07:00 Intake Total 1000 ml 740 ml 250 ml Balance 1000 ml 740 ml 250 ml LUIZ BENDER MD Jan 23, 2017 08:31
[2017-01-23] MEDS: oxyCODONE ER 10 MG TAB.ER.12H PO SCH (08:33)
[2017-01-23] MEDS: NICOTINE 14MG PATCH. TD SCH (08:33)
[2017-01-23] MEDS: CARISOPRODOL 350 MG TABLET PO SCH (08:33)
[2017-01-23] MEDS ORDERED: LEVO500T59 PO (08:34)
[2017-01-23] MEDS ORDERED: PRED50TA PO (08:34)
[2017-01-23] MEDS: amLODIPine BESYLATE 10 MG TABLET PO SCH (08:34)
[2017-01-23] MEDS: NAPROXEN 500 MG TABLET PO SCH (08:34)
[2017-01-23 08:35] VITALS: BP 145/89
[2017-01-23] MEDS: IV NORMAL SALINE 1000ML BAG 1,000 ML IV SCH (08:35)
[2017-01-23] MEDS: LOSARTAN POTASSIUM 50 MG TABLET. PO SCH (08:35)
--- NOTE | 2017-01-23 08:50 | PDOC ---
Provider Note Provider Note Discharge summary dictated. #[id number] LUIZ BENDER MD Jan 23, 2017 08:50
--- NOTE | 2017-01-23 10:52 | DS ---
DATE OF DISCHARGE: 01/23/2017 REASON FOR ADMISSION TO THE HOSPITAL: COPD with acute exacerbation, failure of outpatient treatment. CONSULTATION: Dr. Owen. PROCEDURES DONE: None. COMPLICATIONS NOTED: None. HOSPITAL COURSE: The patient is a 56-year-old female with history of chronic COPD, continues to smoke. She was at [facility] Emergency Room 3 days ago, was given prednisone and Zithromax and she also has a pulmonary machine at home. She was not feeling any better, still coughing, wheezing, lightheaded and dizzy. The patient was admitted to the hospital, her white count was 18,000. Chest x-ray was negative for acute infiltrations, was given IV Solu-Medrol, IV Levaquin, IV Zithromax and DuoNeb 4 times daily with IV fluids, hydration. The patient's condition improved after 3 days in the hospital stay and the patient was discharged and the white count was elevated secondary to steroids. Sputum cultures negative. FINAL DIAGNOSES: 1. Acute chronic obstructive pulmonary disease with acute bronchitis exacerbation. 2. Chronic obstructive pulmonary disease. 3. Smoking addiction. 4. Hypertension. 5. Chronic pain medications for her back as well as knee problems. The patient was given counseling about stop smoking.Pt had flu and pneumonia shots in the past and up to date on current vaccinations. LUIZ BENDER MD DR: ANDRIY/carolee JOB#: [id number] / [id number] VERA
== END 2017-01-23 10:33 | disposition home or self-care (01) | DRG 192 ==
LOC: 5 SOUTH 12:49
PROVIDERS: ADMIT Internal Medicine; ATTEND Internal Medicine
DX: J44.0 Chronic obstructive pulmonary disease with (acute) lower respiratory infection (principal); J44.1 Chronic obstructive pulmonary disease with (acute) exacerbation; M54.9 Dorsalgia, unspecified; G89.29 Other chronic pain; I10 Essential (primary) hypertension; F17.200 Nicotine dependence, unspecified, uncomplicated; M19.90 Unspecified osteoarthritis, unspecified site; Z82.49 Family history of ischemic heart disease and other diseases of the circulatory system; Z71.6 Tobacco abuse counseling
CPT/HCPCS: 36415; 71020; 80048; 80053; 85007; 85027; 87070; 87205; 93005; 94250; 94640; 94760; 99406; J0456; J1650; J1956; J2930; J7030; J7050; J7620; J7626

== ENCOUNTER → 2017-03-03 | Outpatient (CLI) | payer MEDICARE, OTHER ==
--- NOTE | 2017-03-03 15:16 | RAD ---
Left lower extremity venous ultrasound, 03/03/2017 : History: Left leg pain and swelling Duplex evaluation including grayscale, color flow and spectral Doppler analysis was performed. The femoral and popliteal veins show no filling defects to suggest DVT. The visualized calf veins are unremarkable. IMPRESSION: There is no sonographic evidence of deep vein thrombosis in the left lower extremity
== END | disposition home or self-care (01) ==
LOC: US 15:18
PROVIDERS: ATTEND Internal Medicine
DX: M79.605 Pain in left leg (principal); M79.89 Other specified soft tissue disorders
CPT/HCPCS: 93971

== ENCOUNTER 2017-06-23 17:40 | Inpatient (IN) | payer MEDICARE, OTHER ==
[2017-06-23] MEDS ORDERED: ALBUTEROL SULFATE 2.5 MG/3 ML NEBU. NEB (19:30)
[2017-06-23] MEDS: DOCUSATE SODIUM 100 MG CAPSULE. PO (20:51)
[2017-06-23] MEDS: oxyCODONE IR 5 MG TABLET PO (20:52)
[2017-06-23] MEDS: LACTOBACILLUS RHAMNOSUS GG 1 CAPSULE. PO (20:52)
[2017-06-23] MEDS: NICOTINE 14MG PATCH. TD (20:52)
[2017-06-23] MEDS: ENOXAPARIN 40 MG/0.4 ML SYRINGE. SQ (20:55)
[2017-06-23 21:00] LABS: ADD MAN DIFF? NO
[2017-06-23 21:02] LABS: BASO # 0.1 x10^3/uL (0.0-0.2); BASO % 1 % (0-3); EOS % 0 % (0-3); HEMATOCRIT 37.1 % (36.0-47.0); HEMOGLOBIN 11.7 g/dL (12.0-15.5); LYMPH # 2.4 x10^3/uL (1.0-4.8); LYMPH % 15 % (24-48); MEAN CORPUSCULAR HEMOGLOBIN 23 pg (25-35); MEAN CORPUSCULAR HGB CONC 32 g/dL (31-37); MEAN CORPUSCULAR VOLUME 73 fL (79-100); MONO # 1.6 x10^3/uL (0.0-1.1); MONO % 10 % (0-9); NEUT % 74 % (31-73); PLATELET COUNT 343 x10^3/uL (140-400); RED BLOOD COUNT 5.12 x10^6/uL (3.50-5.40); WHITE BLOOD COUNT 16.1 x10^3/uL (4.0-11.0)
[2017-06-23 21:21] LABS: ALBUMIN 2.9 g/dL (3.4-5.0); ALBUMIN/GLOBULIN RATIO 0.6 (1.0-1.7); ALK PHOS 73 U/L (46-116); ALT (SGPT) 13 U/L (14-59); ANION GAP 7 (6-14); AST (SGOT) 27 U/L (15-37); BLOOD UREA NITROGEN 9 mg/dL (7-20); BUN/CREATININE RATIO 15 (6-20); CALCIUM 8.4 mg/dL (8.5-10.1); CARBON DIOXIDE 34 mmol/L (21-32); CHLORIDE 101 mmol/L (98-107); CREATININE 0.6 mg/dL (0.6-1.0); GFR 125.6; GLUCOSE 128 mg/dL (70-99); POTASSIUM 3.2 mmol/L (3.5-5.1); SODIUM 142 mmol/L (136-145); TOTAL BILIRUBIN 0.6 mg/dL (0.2-1.0); TOTAL PROTEIN 7.6 g/dL (6.4-8.2)
[2017-06-23] MEDS: IPRATRPIUM/ALBUTEROL 0.5/2.5MG 3 ML NEBU. NEB (22:02)
[2017-06-23 22:09] LABS: HYPOCHROMIA MARKED; PLT ESTIMATE ADEQUATE (ADEQUATE); POLYCHROMASIA MOD
[2017-06-23 22:10] LABS: ANISOCYTOSIS MOD; MICROCYTOSIS SLIGHT; TARGET CELLS MOD
[2017-06-23] MEDS: IV NORMAL SALINE 1000ML BAG 1,000 ML IV (22:22)
[2017-06-23] MEDS: methylPREDNISolone SOD SUCC PF 125 MG/2 ML VIAL. IV (22:22)
[2017-06-23] MEDS: AZITHROMYCIN 500 MG in IV NORMAL SALINE 250ML 250 ML IV (22:23)
[2017-06-23] MEDS: cefTRIAXone IV Push 1 GM VIAL. IVP (22:23)
[2017-06-24] MEDS: oxyCODONE IR 5 MG TABLET PO ×5 (01:20→21:33)
[2017-06-24] MEDS: KETOROLAC 15 MG/ML VIAL. IV ×3 (05:19→21:33)
[2017-06-24] MEDS: methylPREDNISolone SOD SUCC PF 40 MG/ML VIAL. IV ×2 (06:43→15:47)
[2017-06-24] MEDS: IPRATRPIUM/ALBUTEROL 0.5/2.5MG 3 ML NEBU. NEB ×5 (06:58→20:39)
[2017-06-24] MEDS: NICOTINE 14MG PATCH. TD (09:19)
[2017-06-24] MEDS: LACTOBACILLUS RHAMNOSUS GG 1 CAPSULE. PO ×2 (09:19→21:32)
[2017-06-24] MEDS: DOCUSATE SODIUM 100 MG CAPSULE. PO ×2 (09:19→21:32)
[2017-06-24] MEDS: POTASSIUM CHLORIDE 20 MEQ TABLET.ER. PO ×2 (09:40→15:42)
[2017-06-24 10:09] LABS: INFLUENZA A PATIENT NEGATIVE (NEGATIVE); INFLUENZA B PATIENT NEGATIVE (NEGATIVE); OBC FLU VALID
[2017-06-24] MEDS: ENOXAPARIN 40 MG/0.4 ML SYRINGE. SQ (21:30)
[2017-06-24] MEDS: AZITHROMYCIN 500 MG in IV NORMAL SALINE 250ML 250 ML IV (21:31)
[2017-06-24] MEDS: cefTRIAXone IV Push 1 GM VIAL. IVP (21:32)
[2017-06-24] MEDS: methylPREDNISolone SOD SUCC PF 125 MG/2 ML VIAL. IV (21:34)
[2017-06-25] MEDS: oxyCODONE IR 5 MG TABLET PO ×5 (01:19→21:57)
[2017-06-25 04:20] LABS: ADD MAN DIFF? YES; BASO % 0 % (0-3); EOS % 0 % (0-3); LYMPH # 0.9 x10^3/uL (1.0-4.8); LYMPH % 4 % (24-48); MEAN CORPUSCULAR HEMOGLOBIN 23 pg (25-35); MEAN CORPUSCULAR HGB CONC 31 g/dL (31-37); MEAN CORPUSCULAR VOLUME 75 fL (79-100); MONO % 5 % (0-9); NEUT # 18.9 x10^3uL (1.8-7.7); NEUT % 91 % (31-73); PLATELET COUNT 406 x10^3/uL (140-400); RED BLOOD COUNT 4.82 x10^6/uL (3.50-5.40); RED CELL DISTRIBUTION WIDTH 22.2 % (11.5-14.5); WHITE BLOOD COUNT 20.9 x10^3/uL (4.0-11.0)
[2017-06-25 05:00] LABS: ANION GAP 8 (6-14); BLOOD UREA NITROGEN 15 mg/dL (7-20); CALCIUM 8.7 mg/dL (8.5-10.1); CARBON DIOXIDE 30 mmol/L (21-32); CHLORIDE 103 mmol/L (98-107); CREATININE 0.8 mg/dL (0.6-1.0); GFR 90.1; GLUCOSE 143 mg/dL (70-99); POTASSIUM 4.3 mmol/L (3.5-5.1); SODIUM 141 mmol/L (136-145)
[2017-06-25] MEDS: methylPREDNISolone SOD SUCC PF 125 MG/2 ML VIAL. IV (06:13)
[2017-06-25 06:27] LABS: % LYMPHS 5 % (24-48); % MONOS 3 % (0-10); % SEGS 92 % (35-66); PLT ESTIMATE ADEQUATE (ADEQUATE)
[2017-06-25 06:28] LABS: ANISOCYTOSIS MOD; HYPOCHROMIA MOD; MICROCYTOSIS SLIGHT
[2017-06-25] MEDS: IPRATRPIUM/ALBUTEROL 0.5/2.5MG 3 ML NEBU. NEB ×5 (07:03→19:09)
[2017-06-25] MEDS: LACTOBACILLUS RHAMNOSUS GG 1 CAPSULE. PO ×2 (08:54→21:46)
[2017-06-25] MEDS: DOCUSATE SODIUM 100 MG CAPSULE. PO ×2 (08:55→21:46)
[2017-06-25] MEDS: NICOTINE 14MG PATCH. TD (08:55)
[2017-06-25] MEDS: predniSONE 10 MG TABLET PO (11:25)
[2017-06-25] MEDS: ALPRAZolam 0.5 MG TABLET PO ×2 (11:25→21:47)
[2017-06-25] MEDS: CEFPODOXIME PROXETIL 100 MG TABLET. PO ×2 (11:26→21:46)
[2017-06-25] MEDS: BENZONATATE 100 MG CAPSULE. PO (18:44)
[2017-06-25] MEDS ORDERED: AZITHROMYCIN 250 MG TABLET. PO (21:00)
[2017-06-25] MEDS: AZITHROMYCIN 250 MG TABLET. PO (21:47)
[2017-06-25] MEDS: ENOXAPARIN 40 MG/0.4 ML SYRINGE. SQ (21:52)
[2017-06-26] MEDS: IPRATRPIUM/ALBUTEROL 0.5/2.5MG 3 ML NEBU. NEB ×3 (00:56→12:47)
[2017-06-26] MEDS: DOCUSATE SODIUM 100 MG CAPSULE. PO (09:00)
[2017-06-26] MEDS: LACTOBACILLUS RHAMNOSUS GG 1 CAPSULE. PO (09:57)
[2017-06-26] MEDS: BENZONATATE 100 MG CAPSULE. PO (09:57)
[2017-06-26] MEDS: ALPRAZolam 0.5 MG TABLET PO (09:57)
[2017-06-26] MEDS: CEFPODOXIME PROXETIL 100 MG TABLET. PO (09:57)
[2017-06-26] MEDS: predniSONE 10 MG TABLET PO (09:57)
[2017-06-26] MEDS: oxyCODONE IR 5 MG TABLET PO (09:58)
[2017-06-26] MEDS: NICOTINE 14MG PATCH. TD (09:58)
[2017-06-26] MEDS ORDERED: LOSARTAN POTASSIUM 50 MG TABLET. PO (11:00)
[2017-06-26] MEDS ORDERED: amLODIPine BESYLATE 5 MG TABLET PO (11:00)
== END 2017-06-26 13:40 | disposition home or self-care (01) | DRG 189 ==
LOC: 6 SOUTH 17:40
DX: J96.01 Acute respiratory failure with hypoxia (principal); J15.6 Pneumonia due to other Gram-negative bacteria; J44.0 Chronic obstructive pulmonary disease with (acute) lower respiratory infection; J44.1 Chronic obstructive pulmonary disease with (acute) exacerbation; E78.5 Hyperlipidemia, unspecified; G89.4 Chronic pain syndrome; F17.210 Nicotine dependence, cigarettes, uncomplicated; I10 Essential (primary) hypertension; M19.90 Unspecified osteoarthritis, unspecified site; Y95 Nosocomial condition; Z82.49 Family history of ischemic heart disease and other diseases of the circulatory system
CPT/HCPCS: 36415; 71046; 80048; 80053; 85007; 85025; 87040; 87070; 87205; 87804; 87804-59; 93005; 94618; 94640; 94760; 97162-GP; 97165-GO; 97530-GP; 99406; J0456; J0696; J1650; J1885; J2920; J2930; J7030; J7050; J7512; J7620; Q0144

== ENCOUNTER 2017-09-22 08:47 | Inpatient (IN) | payer MEDICARE, OTHER ==
[2017-09-22] MEDS ORDERED: ALBUTEROL SULFATE 2.5 MG/3 ML NEBU. NEB ×2 (10:30→14:00)
[2017-09-22 11:33] LABS: ADD MAN DIFF? NO
[2017-09-22 11:43] LABS: BASO # 0.1 x10^3/uL (0.0-0.2); BASO % 1 % (0-3); EOS # 0.3 x10^3/uL (0.0-0.7); EOS % 3 % (0-3); HEMATOCRIT 39.1 % (36.0-47.0); HEMOGLOBIN 12.1 g/dL (12.0-15.5); LYMPH # 4.1 x10^3/uL (1.0-4.8); LYMPH % 42 % (24-48); MEAN CORPUSCULAR HEMOGLOBIN 23 pg (25-35); MEAN CORPUSCULAR HGB CONC 31 g/dL (31-37); MEAN CORPUSCULAR VOLUME 73 fL (79-100); MONO # 0.7 x10^3/uL (0.0-1.1); MONO % 8 % (0-9); NEUT # 4.5 x10^3uL (1.8-7.7); NEUT % 47 % (31-73); PLATELET COUNT 369 x10^3/uL (140-400); RED BLOOD COUNT 5.34 x10^6/uL (3.50-5.40); RED CELL DISTRIBUTION WIDTH 21.1 % (11.5-14.5); WHITE BLOOD COUNT 9.7 x10^3/uL (4.0-11.0)
[2017-09-22 11:54] LABS: ALBUMIN 3.7 g/dL (3.4-5.0); ALBUMIN/GLOBULIN RATIO 0.9 (1.0-1.7); ALK PHOS 95 U/L (46-116); ALT (SGPT) 20 U/L (14-59); ANION GAP 8 (6-14); AST (SGOT) 25 U/L (15-37); BLOOD UREA NITROGEN 12 mg/dL (7-20); BUN/CREATININE RATIO 17 (6-20); CALCIUM 9.3 mg/dL (8.5-10.1); CARBON DIOXIDE 30 mmol/L (21-32); CHLORIDE 102 mmol/L (98-107); CREATININE 0.7 mg/dL (0.6-1.0); GFR 104.7; GLUCOSE 103 mg/dL (70-99); POTASSIUM 3.9 mmol/L (3.5-5.1); SODIUM 140 mmol/L (136-145); TOTAL BILIRUBIN 0.6 mg/dL (0.2-1.0); TOTAL PROTEIN 7.8 g/dL (6.4-8.2)
[2017-09-22 12:03] LABS: NT-PRO BNP 54 pg/mL (0-124)
[2017-09-22] MEDS: LOSARTAN POTASSIUM 50 MG TABLET. PO (12:24)
[2017-09-22] MEDS: ALPRAZolam 0.25 MG TABLET PO ×2 (12:24→21:06)
[2017-09-22] MEDS: NICOTINE 14MG PATCH. TD (12:25)
[2017-09-22] MEDS: oxyCODONE ER 10 MG TAB.ER.12H PO (12:25)
[2017-09-22] MEDS: amLODIPine BESYLATE 10 MG TABLET PO ×2 (12:25→21:06)
[2017-09-22 12:33] LABS: ANISOCYTOSIS MOD; PLT ESTIMATE ADEQUATE (ADEQUATE)
[2017-09-22 12:34] LABS: TARGET CELLS MOD
[2017-09-22] MEDS: methylPREDNISolone SOD SUCC PF 40 MG/ML VIAL. IV ×2 (13:53→21:06)
[2017-09-22] MEDS: AZITHROMYCIN 500 MG in IV DEXTROSE 5 %-0.2 % NACL 250 ML IV (13:53)
[2017-09-22] MEDS: cefTRIAXone IV Push 1 GM VIAL. IVP (13:55)
[2017-09-22] MEDS: IV NORMAL SALINE 1000ML BAG 1,000 ML IV (13:58)
[2017-09-22] MEDS ORDERED: IPRATROPIUM BROMIDE 0.5 MG/2.5 ML NEBU. NEB (14:00)
[2017-09-22] MEDS: IPRATRPIUM/ALBUTEROL 0.5/2.5MG 3 ML NEBU. NEB ×3 (15:19→22:00)
[2017-09-22 15:40] LABS: INFLUENZA A PATIENT NEGATIVE (NEGATIVE); INFLUENZA B PATIENT NEGATIVE (NEGATIVE); OBC FLU VALID
[2017-09-22 16:02] LABS: BILIRUBIN,URINE NEGATIVE (NEG); GLUCOSE,URINE NEGATIVE (NEG); NITRITE,URINE NEGATIVE (NEG); PROTEIN,URINE NEGATIVE (NEG-TRACE)
[2017-09-22 16:12] LABS: CLARITY,URINE HAZY; COLOR,URINE DK YELLOW
[2017-09-22 16:17] LABS: BACTERIA,URINE FEW /HPF (0-FEW); RBC,URINE RARE /HPF (0-2); SQUAMOUS EPITHELIAL CELL,UR MANY /LPF; TRICHOMONAS,URINE PRESENT
[2017-09-22] MEDS: ENOXAPARIN 40 MG/0.4 ML SYRINGE. SQ (17:32)
[2017-09-22] MEDS: oxyCODONE IR 5 MG TABLET PO (18:23)
[2017-09-22] MEDS ORDERED: NON FORMULARY ITEM (Mometasone/Formoterol (Dulera 200 Mcg/5 Mcg Inhaler) 2 PUFF) IH (21:00)
[2017-09-22] MEDS: LACTOBACILLUS RHAMNOSUS GG 1 CAPSULE. PO (21:06)
[2017-09-22] MEDS: oxyCODONE/APAP 5/325 1 TAB TABLET PO (21:06)
[2017-09-23] MEDS: oxyCODONE IR 5 MG TABLET PO ×3 (00:31→16:50)
[2017-09-23] MEDS: CARISOPRODOL 350 MG TABLET PO ×3 (00:38→16:50)
[2017-09-23] MEDS: oxyCODONE/APAP 5/325 1 TAB TABLET PO ×2 (05:04→22:53)
[2017-09-23] MEDS: ALPRAZolam 0.25 MG TABLET PO ×3 (06:11→21:24)
[2017-09-23] MEDS: methylPREDNISolone SOD SUCC PF 40 MG/ML VIAL. IV ×3 (06:11→21:28)
[2017-09-23] MEDS: IPRATRPIUM/ALBUTEROL 0.5/2.5MG 3 ML NEBU. NEB ×5 (07:41→22:00)
[2017-09-23] MEDS: amLODIPine BESYLATE 10 MG TABLET PO ×2 (08:00→21:28)
[2017-09-23] MEDS: LACTOBACILLUS RHAMNOSUS GG 1 CAPSULE. PO ×2 (08:01→21:23)
[2017-09-23] MEDS: LOSARTAN POTASSIUM 50 MG TABLET. PO (08:01)
[2017-09-23] MEDS: NICOTINE 14MG PATCH. TD (08:01)
[2017-09-23] MEDS ORDERED: NICOTINE 21MG PATCH. TD (09:00)
[2017-09-23] MEDS ORDERED: NICOTINE 7MG PATCH. TD (09:00)
[2017-09-23] MEDS: cefTRIAXone IV Push 1 GM VIAL. IVP (11:27)
[2017-09-23] MEDS: ENOXAPARIN 40 MG/0.4 ML SYRINGE. SQ (16:00)
[2017-09-24] MEDS: oxyCODONE IR 5 MG TABLET PO ×4 (00:13→21:52)
[2017-09-24] MEDS: methylPREDNISolone SOD SUCC PF 40 MG/ML VIAL. IV ×3 (05:39→21:50)
[2017-09-24] MEDS: oxyCODONE/APAP 5/325 1 TAB TABLET PO (05:40)
[2017-09-24] MEDS: CARISOPRODOL 350 MG TABLET PO ×2 (05:40→15:34)
[2017-09-24] MEDS: IPRATRPIUM/ALBUTEROL 0.5/2.5MG 3 ML NEBU. NEB ×5 (07:22→22:00)
[2017-09-24] MEDS: LACTOBACILLUS RHAMNOSUS GG 1 CAPSULE. PO ×2 (09:02→21:51)
[2017-09-24] MEDS: LOSARTAN POTASSIUM 50 MG TABLET. PO (09:03)
[2017-09-24] MEDS: amLODIPine BESYLATE 10 MG TABLET PO ×2 (09:03→21:51)
[2017-09-24] MEDS: ALPRAZolam 0.25 MG TABLET PO ×2 (09:03→18:04)
[2017-09-24] MEDS: NICOTINE 14MG PATCH. TD (09:08)
[2017-09-24] MEDS: GADOBUTROL 7.5 MMOL/7.5 ML VIAL IV (11:58)
[2017-09-24] MEDS: NACL IV (12:39)
[2017-09-24] MEDS: cefTRIAXone IV Push 1 GM VIAL. IVP (12:39)
[2017-09-24] MEDS: DEXTROSE IV (12:39)
[2017-09-24] MEDS: AZITHROMYCIN IV (12:39)
[2017-09-24] MEDS: GABAPENTIN 100 MG CAPSULE. PO ×2 (14:12→21:51)
[2017-09-24] MEDS: ENOXAPARIN 40 MG/0.4 ML SYRINGE. SQ (15:32)
[2017-09-25] MEDS: ALPRAZolam 0.25 MG TABLET PO (02:16)
[2017-09-25] MEDS: methylPREDNISolone SOD SUCC PF 40 MG/ML VIAL. IV (05:48)
[2017-09-25] MEDS: IPRATRPIUM/ALBUTEROL 0.5/2.5MG 3 ML NEBU. NEB (07:15)
[2017-09-25] MEDS: oxyCODONE IR 5 MG TABLET PO (09:21)
[2017-09-25] MEDS: amLODIPine BESYLATE 10 MG TABLET PO (09:21)
[2017-09-25] MEDS: GABAPENTIN 100 MG CAPSULE. PO (09:21)
[2017-09-25] MEDS: LACTOBACILLUS RHAMNOSUS GG 1 CAPSULE. PO (09:21)
[2017-09-25] MEDS: LOSARTAN POTASSIUM 50 MG TABLET. PO (09:22)
[2017-09-25] MEDS: NICOTINE 14MG PATCH. TD (09:22)
== END 2017-09-25 11:12 | disposition home or self-care (01) | DRG 192 ==
LOC: 5 SOUTH 08:47
DX: J44.1 Chronic obstructive pulmonary disease with (acute) exacerbation (principal); Z99.81 Dependence on supplemental oxygen; M41.9 Scoliosis, unspecified; F32.9 Major depressive disorder, single episode, unspecified; F41.9 Anxiety disorder, unspecified; I10 Essential (primary) hypertension; G89.29 Other chronic pain; F17.210 Nicotine dependence, cigarettes, uncomplicated; R09.02 Hypoxemia; M21.6X2 Other acquired deformities of left foot; M47.816 Spondylosis without myelopathy or radiculopathy, lumbar region; M19.042 Primary osteoarthritis, left hand; M19.041 Primary osteoarthritis, right hand; Z96.652 Presence of left artificial knee joint; Z82.49 Family history of ischemic heart disease and other diseases of the circulatory system; Z79.899 Other long term (current) drug therapy
CPT/HCPCS: 36415; 71046; 72158; 73630; 80053; 81001; 83880; 85025; 87040; 87086; 87804; 87804-59; 93005; 94640; 94760; A9585; J0456; J0696; J1650; J2920; J7030; J7620

== ENCOUNTER 2020-01-14 12:22 | Emergency (ER) | payer MEDICARE, OTHER ==
[~2020-01-14] VITALS: Ht 170.2 cm; Wt 72.0 kg
[~2020-01-14 12:22] MED LIST changes: +ALBU2.5V8 IH; +ALPR0.25 PO; +ALPR0.254 PO; +AZIT250T PO; +CEFD300C PO; +DOXY100T PO; +FLUC200T PO; +HYDR-3164 PO; -HYDR-971 PO; +METH4TAB2 PO; -OXYC-327 PO; -OXYC-328 PO; -OXYC10TA45 PO; +OXYC10TA46 PO; -OXYC15TA PO; +OXYC15TA3 PO; +OXYC1TAB19 PO; +OXYC1TAB22 PO; +OXYC20TA PO; +OXYC30TA64 PO; -PROAIR HFA8.5 GM IH
--- NOTE | 2020-01-14 13:53 | PHYS DOC ---
Past Medical History Past Medical History: Arthritis, COPD, Hypertension, Other Additional Past Medical Histor: TBI, gout, hernia Past Surgical History: , Knee Replacement, Other Additional Past Surgical Histo: carpal tunnel bilateral, bilateral foot surgery Smoking Status: Current Every Day Smoker Alcohol Use: None Drug Use: None General Adult EDM: Chief Complaint: BACK PAIN OR INJURY HPI: HPI: Patient is a 59 year old female who presents with complaints of low left sided back pain that radiates down her left buttocks and to the back of her left leg for the past 2 days, denies trauma to her back stating that she has back pain all the time and comes in to get pain medications for. Patient also states she is having right-sided chest pain that radiates through to her shoulder blade that has been a 10 out of 10 pain for the past 3 months, however patient states that no one can figure out what is wrong, patient states she needs pain medications for her chest as well. Patient also states that she does not want a [place] anti-inflammatories, and no [place]'s, stating that she wants Percocets or something stronger. Patient rates her back pain and her chest pain a 10/10 pain scale, patient states she is out of her Percocet at home, patient states that she has not taken anything else for her pain. Patient reports her pain is a sharp stabbing pain, patient also states that it is what ever it needs to be for me to give her pain medications. Patient denies fever chills or concern for COVID-19 exposure. Patient denies any visual changes, any nasal congestion, cough, shortness of breath. Patient denies any chest pain, or or swelling to her extremities. Patient denies any abdominal pain, nausea, vomiting, diarrhea, or constipation. Patient denies any problems urinating, denies any vaginal discharge, denies any STI concerns. Patient denies any pain in her joints. Patient denies any skin rashes, headaches, focal weaknesses, or sensory changes. Patient denies any swelling of her glands, increased urination or increased thirst. Patient denies any recent life changes, depressions, anxieties, homicidal or suicidal ideations. Review of Systems: Review of Systems: Constitutional: Denies fever or chills. Denies exposure to COVID-19 virus. Eyes: Denies change in visual acuity. HENT: Denies nasal congestion or sore throat. Respiratory: Denies cough or shortness of breath. Cardiovascular: Complains of right-sided chest pain that radiates through to her shoulder blade, denies edema. GI: Denies abdominal pain, nausea, vomiting, bloody stools or diarrhea. : Denies dysuria. Musculoskeletal: Denies pain in her joints, however does complain of low left- sided back pain that radiates down her left buttocks and correction down her left thigh. Integument: Denies rash. Neurologic: Denies headache, focal weakness or sensory changes. Endocrine: Denies polyuria or polydipsia. Lymphatic: Denies swollen glands. Psychiatric: Denies depression or anxiety. Denies homicidal or suicidal ideation Heart Score: Risk Factors: Risk Factors: DM, Current or recent (<one month) smoker, HTN, HLP, family history of CAD, obesity. Risk Scores: Score 0 - 3: 2.5% MACE over next 6 weeks - Discharge Home Score 4 - 6: 20.3% MACE over next 6 weeks - Admit for Clinical Observation Score 7 - 10: 72.7% MACE over next 6 weeks - Early Invasive Strategies Family History: Family History: Denies significant family history related to this ER visit today. Allergies: Allergies: Allergies Coded Allergies Type Severity Reaction Last Updated Verified No Known Drug Allergies 07/20/17 No Physical Exam: PE: Constitutional: Well developed, well nourished, no acute distress, non-toxic appearance. HENT: Normocephalic, atraumatic, bilateral external ears normal, oropharynx moist, no oral exudates, nose normal. Eyes: PERRLA, EOMI, conjunctiva normal, no discharge. Pupils 3 mm. Neck: Normal range of motion, no tenderness, supple, no stridor. Cardiovascular:Heart rate regular rhythm, no murmur heart sounds S1-S2, no abnormalities per auscultation. Lungs & Thorax: Bilateral breath sounds clear to auscultation all lung sellers. Abdomen: Bowel sounds normal all 4 quadrants, soft, no tenderness, no masses, no pulsatile masses. Skin: Warm, dry, no erythema, no rash. Back: No CVA tenderness, tenderness to palpation left lumbar region, no midline spine tenderness. Extremities: Tenderness to palpation down left center buttocks distally to the mid hamstring area, no swelling or deformity noted, no crepitus noted, no cyanosis, no clubbing, ROM intact, no edema. Neurologic: Alert and oriented X 3, normal motor function, normal sensory function, no focal deficits noted. Psychologic: Affect normal, judgement normal, mood normal. Current Patient Data: Vital Signs: Vital Signs Date Time Temp Pulse Resp B/P (MAP) Pulse Ox O2 Delivery O2 Flow Rate FiO2 01/14/20 12:45 98.1 88 18 192/84 (120) 94 98.1 EKG: EKG: EKG performed at 1227 by ED nursing staff, reviewed by ED attending Dr. Glover, shows normal sinus rhythm without ectopy, no STEMI noted, no ACS concerns. Radiology/Procedures: Radiology/Procedures: [] Course & Med Decision Making: Course & Med Decision Making Pertinent Labs and Imaging studies reviewed. (See chart for details) 59-year-old female patient presents emergency department with complaints of left-sided low back pain that radiates into her leg, also has complaints of chest pains. Vital signs are reviewed, labs were ordered, results not concerning for ACS, or cardiac concerns. Patient's physical examination of back pain was not concerning for cauda equina, no saddle anesthesia, no acute process, most likely an acute onset of her chronic sciatica pains. Discussed with patient lab, EKG, and physical findings, patient states she wants Percocets to go home, reviewed with patient she would not be getting Percocets, however she will be given a prescription for 10 count, 5/325 Vicodin, patient is to follow-up with her primary care physician for further evaluation of her chronic back pains, patient had no further questions or concerns, patient discharged home. Amyon Disclaimer: Olegario Disclaimer: This electronic medical record was generated, in whole or in part, using a voice recognition dictation system. Departure Departure Impression: Primary Impression: Sciatica of left side Additional Impression: Chest wall pain Disposition: 01 HOME, SELF-CARE Condition: GOOD Referrals: MELANY PAZ (PCP) Patient Instructions: Chest Wall Pain, Sciatica Additional Instructions: Take medications as prescribed, follow-up with your primary care physician for further evaluation of your sciatica and pain management, return to the emergency department for further concerns. Scripts Hydrocodone Bit/Acetaminophen (HYDROCODONE-APAP 5-325 ) 1 Tab Tablet 1 TAB PO PRN Q6HRS PRN for PAIN, #10 TAB 0 Refills Prov: MATEUSZ MCCALL APRN 01/14/20 Justicifation of Admission Dx: Justifications for Admission: Justification of Admission Dx: N/A MATEUSZ MCCALL APRN Jan 14, 2020 13:53
[2020-01-14] MEDS ORDERED: oxyCODONE/APAP 5/325 1 TAB TABLET PO ONE (14:00)
--- NOTE | 2020-01-14 14:38 | RAD ---
EXAM: Chest, 2 views. HISTORY: Chest pain. COMPARISON: 07/01/2019 FINDINGS: 2 views of the chest are obtained. There is no infiltrate, pleural effusion or pneumothorax. The heart is normal in size. There is thoracolumbar scoliosis. There is slight blunting of the costophrenic angles likely due to large lung volumes. IMPRESSION: No acute pulmonary finding. Electronically signed by: Angelika Guillen MD (01/14/2020 2:35 PM) [id number]
[2020-01-14 15:00] LABS: BASO # 0.1 x10^3/uL (0.0-0.2); BASO % 2 % (0-3); EOS % 1 % (0-3); HEMATOCRIT 48.8 % (36.0-47.0); HEMOGLOBIN 16.2 g/dL (12.0-15.5); LYMPH # 1.8 x10^3/uL (1.0-4.8); LYMPH % 24 % (24-48); MEAN CORPUSCULAR HEMOGLOBIN 27 pg (25-35); MEAN CORPUSCULAR HGB CONC 33 g/dL (31-37); MEAN CORPUSCULAR VOLUME 80 fL (79-100); MONO # 0.4 x10^3/uL (0.0-1.1); MONO % 6 % (0-9); NEUT # 5.1 x10^3/uL (1.8-7.7); NEUT % 68 % (31-73); PLATELET COUNT 270 x10^3/uL (140-400); RED CELL DISTRIBUTION WIDTH 21.3 % (11.5-14.5); WHITE BLOOD COUNT 7.4 x10^3/uL (4.0-11.0)
[2020-01-14] MEDS ORDERED: fentaNYL PF VIAL 100 MCG/2 ML VIAL IVP ONE (15:00)
[2020-01-14 15:17] LABS: CALCIUM 9.4 mg/dL (8.5-10.1); CREATININE 0.7 mg/dL (0.6-1.0); POTASSIUM 3.9 mmol/L (3.5-5.1)
[2020-01-14 15:23] LABS: ALBUMIN 3.9 g/dL (3.4-5.0); ALBUMIN/GLOBULIN RATIO 0.8 (1.0-1.7); TOTAL BILIRUBIN 0.7 mg/dL (0.2-1.0); TOTAL PROTEIN 8.7 g/dL (6.4-8.2)
[2020-01-14 15:31] LABS: BILIRUBIN,URINE NEGATIVE (NEG); CLARITY,URINE CLEAR; COLOR,URINE YELLOW; NITRITE,URINE NEGATIVE (NEG); PH,URINE 8.5 (<5.0-8.0); PROTEIN,URINE NEGATIVE (NEG-TRACE)
[2020-01-14 15:33] LABS: CREATINE KINASE 37 U/L (26-192)
[2020-01-14 15:44] LABS: BACTERIA,URINE 0 /HPF (0-FEW); RBC,URINE 0 /HPF (0-2); SQUAMOUS EPITHELIAL CELL,UR OCC /LPF; WBC,URINE 0 /HPF (0-4)
[2020-01-14 15:47] LABS: ANISOCYTOSIS SLIGHT; PLT ESTIMATE ADEQUATE (ADEQUATE); TARGET CELLS OCC
[2020-01-14 16:30] VITALS: BP 171/79
[2020-01-14] MEDS ORDERED: HYDR-2761 PO (17:33)
--- NOTE | 2020-01-17 04:14 | EKG ---
[facility] [address] [place] [address] Test Date: 2020-01-14 Test Time: 12:27:25 Pat Name: IRENE OLSEN Department: Room: Gender: F [employer]: : 1960 Requested By: MATEUSZ MCCALL Order Number: [id number] Reading MD: Measurements Intervals [place] Rate: 87 P: 52 VA: 142 QRS: 56 QRSD: 82 T: 57 QT: 370 QTc: 446 Interpretive Statements SINUS RHYTHM NO SPECIFIC ECG ABNORMALITIES RI6.01 No previous ECG available for comparison
== END 2020-01-14 17:36 | disposition home or self-care (01) ==
LOC: ER 12:22
DX: M54.42 Lumbago with sciatica, left side (principal); R07.89 Other chest pain; J44.9 Chronic obstructive pulmonary disease, unspecified; I10 Essential (primary) hypertension; M10.9 Gout, unspecified; Z87.820 Personal history of traumatic brain injury; Z98.890 Other specified postprocedural states; F17.200 Nicotine dependence, unspecified, uncomplicated
CPT/HCPCS: 36415; 71046; 80053; 81001; 82553; 84484; 85025; 96374; 99285; J3010; 93005

== ENCOUNTER 2020-02-04 21:08 | Inpatient (IN) | payer MEDICARE, OTHER ==
[~2020-02-04] VITALS: Ht 170.2 cm; Wt 73.1 kg
[~2020-02-04 21:08] MED LIST changes: +HYDR-2761 PO
--- NOTE | 2020-02-04 21:51 | PHYS DOC ---
Past Medical History Past Medical History: Arthritis, COPD, Hypertension, Other Additional Past Medical Histor: TBI, gout, hernia Past Surgical History: , Knee Replacement, Other Additional Past Surgical Histo: carpal tunnel bilateral, bilateral foot surgery Smoking Status: Current Every Day Smoker Alcohol Use: None Drug Use: None General Adult EDM: Chief Complaint: CHEST WALL PAIN HPI: HPI: Patient is a 59 year old female who presents to the emergency department with complaints of increased shortness of breath and chest pain in the left side of her chest that radiates down her left arm. Patient denies any known exposure to COVID-19, states she has been staying at home. Patient reports that she wears oxygen via nasal cannula all the time. She denies any diaphoresis, dizziness, syncope, nausea, vomiting, abdominal pain, rash, sore throat, fever, cough, nasal congestion, body aches, or fatigue. Patient states that the shortness of breath has been so bad that she has not smoked cigarettes for the last 3 days. She also complains of upper back pain that she reports is chronic. She currently rates her pain a 10 out of 10 on the pain scale, she denies any alleviating factors. Patient reports that the pain radiates to her left arm and denies any exacerbating factors. Review of Systems: Review of Systems: Constitutional: Denies fever or chills. [] Eyes: Denies change in visual acuity. [] HENT: Denies nasal congestion or sore throat. [] Respiratory: See HPI Cardiovascular: Denies palpitations or edema; see HPI. [] GI: Denies abdominal pain, nausea, vomiting, or diarrhea. [] Musculoskeletal: Denies joint pain; see HPI Integument: Denies rash. [] Neurologic: Denies headache Psychiatric: Denies depression or anxiety. [] Heart Score: HEART Score for Chest Pain: HEART Score for Chest Pain Response (Comments) Value History Moderately Suspicious 1 ECG Normal 0 Age >45 - < 65 1 Risk Factors >3 Risk Factors or Hx CAD 2 Troponin < Normal Limit 0 Total 4 Risk Factors: Risk Factors: DM, Current or recent (<one month) smoker, HTN, HLP, family history of CAD, obesity. Risk Scores: Score 0 - 3: 2.5% MACE over next 6 weeks - Discharge Home Score 4 - 6: 20.3% MACE over next 6 weeks - Admit for Clinical Observation Score 7 - 10: 72.7% MACE over next 6 weeks - Early Invasive Strategies Allergies: Allergies: Allergies Coded Allergies Type Severity Reaction Last Updated Verified No Known Drug Allergies 07/20/17 No Physical Exam: PE: Constitutional: Well developed, well nourished, no acute distress, non-toxic appearance. [] HENT: Normocephalic, atraumatic, bilateral external ears normal, oropharynx moist, nose normal. [] Eyes: PERRLA, conjunctiva normal, no discharge. [] Neck: Normal range of motion, no stridor. [] Cardiovascular:Heart rate regular rhythm, no murmur [] Lungs & Thorax: Bilateral breath sounds coarse throughout all sellers, no wheezing, regular respirations, speaking full sentences, no retractions Abdomen: soft, no tenderness Skin: Warm, dry, no erythema, no rash. [] Extremities: No cyanosis, no clubbing, ROM intact, no edema. [] Neurologic: Alert and oriented X 3,no focal deficits noted. [] Psychologic: Affect normal, judgement normal, mood normal. [] Current Patient Data: Vital Signs: Vital Signs Date Time Temp Pulse Resp B/P (MAP) Pulse Ox O2 Delivery O2 Flow Rate FiO2 02/04/20 21:25 98.1 96 16 182/109 (133) 97 Nasal Cannula 5.0 98.1 EKG: EK-sinus rhythm, no STEMI, rate [address] Jorgensen Radiology/Procedures: Radiology/Procedures: PROCEDURE: CHEST AP ONLY Chest AP portable at 2136: Reason for examination: Chest pain. Comparison is made to previous study dated 01/14/2020. The heart size is normal. Mediastinum is unremarkable. Lung sellers show some linear densities consistent with atelectasis at the lung bases. No consolidated infiltrates or pleural effusions are seen. No acute bony abnormalities are present. IMPRESSION: Linear atelectasis at the lung bases. PROCEDURE: CT ANGIOGRAPHY CHEST CT ANGIOGRAPHY CHEST INDICATION: elevated d-dimer, SOA Comparison: Radiograph 02/04/2020. TECHNIQUE: Following the uneventful administration of intravenous contrast, 90 cc Omnipaque 350, axial CT sections were obtained through the lungs and upper abdomen. Multiplanar reconstructions and MIP images were obtained. PQRS compliance statement: One or more of the following individualized dose reduction techniques were utilized for this examination: 1. Automated exposure control 2. Adjustment of the mA and/or kV according to patient size 3. Use of iterative reconstruction technique FINDINGS: Pulmonary arteries: No evidence of pulmonary thromboembolic disease. Lungs and Airways: No pulmonary mass or consolidation. Dependent and subsegmental atelectasis. No abnormality of the central airways. Pleura: The pleural spaces are normal. Heart and Mediastinum: The visualized thyroid is normal in size and attenuation. No axillary or supraclavicular lymphadenopathy. Few conspicuous but not pathologically enlarged by CT criteria mediastinal lymph nodes. The heart and pericardium are within normal limits. The great vessels of the thorax are normal. Abdomen: Limited images through the upper abdomen show no abnormality of the visualized organs. Bones and Soft Tissues: Degenerative changes of the spine. Right convex thoracic curvature. IMPRESSION: 1. No evidence of pulmonary thromboembolic disease. 2. No pulmonary mass or consolidation. [] Course & Med Decision Making: Course & Med Decision Making Pertinent Labs and Imaging studies reviewed. (See chart for details) 59-year-old female presents to the emergency department with complaints of shortness of breath for the last 3 days and chest pain that radiates to her left arm that began today. EKG revealed no acute findings. Chest x-ray reveals bilateral linear atelectasis no acute findings. CTA chest is negative for PE, mass, or consolidation CBC is unremarkable; PT/INR within normal limits, D-dimer is 0.71; CMP reveals a carbon dioxide of 33, ALT of 11, otherwise unremarkable; CK profile was unremarkable, first troponin is less than 0.017, C-reactive protein is elevated at 4.5, patient's BNP is 1088, labs otherwise unremarkable. Patient's heart score is a 4. In the emergency department the patient was given 325 mg of aspirin and 0.4 mg of nitroglycerin sublingual x3. The patient reported no change in her chest pain after the first nitro, after the second nitro she stated that the chest pain had reduced to 5/10, after the 3rd nitro the patient reports that the pain remained a 5/10. 50 mcg of fentanyl and 125 mg of solumedrol was ordered. I informed pt of test results and need for admission. Will admit patient to the hospitalist for CP, SOA, COPD exacerbation, and PUI. Report to Dr. Jorgensen at 2309- I advised him of pt admission and need to notify hospitalist. COVID-19 CRITERIA: The patient was evaluated during the global COVID-19 pandemic, and that diagnosis was suspected/considered upon their initial presentation. Their evaluation, treatment and testing was consistent with current guidelines for patients who present with complaints or symptoms that may be related to COVID-19. [] Dragon Disclaimer: Dragon Disclaimer: This electronic medical record was generated, in whole or in part, using a voice recognition dictation system. Departure Departure Impression: Primary Impression: Chest pain Qualified Codes: R07.9 - Chest pain, unspecified Additional Impressions: Shortness of breath COPD exacerbation Person under investigation for COVID-19 Disposition: ADMITTED INPATIENT Admitting Physician: ARABELLA ([facility]) Condition: STABLE Referrals: MELANY PAZ (PCP) Justicifation of Admission Dx: Justifications for Admission: Justification of Admission Dx: N/A COVID-19 Assessment: COVID-19 Patient Risks: Age 65 or older: No Sign of co-morbidity: No Exp to person + for COVID: No Exp to PUI: No Travel from affected area: No Lower respiratory symptoms: Yes Fever: No PPE Use: Full PPE with N95 mask or PAPR: Yes PANDA ELLISON AMBULATORY CARE COORDINATOR Feb 04, 2020 21:51
[2020-02-04 22:00] LABS: BASO # 0.1 x10^3/uL (0.0-0.2); BASO % 1 % (0-3); EOS # 0.1 x10^3/uL (0.0-0.7); EOS % 1 % (0-3); HEMATOCRIT 46.7 % (36.0-47.0); HEMOGLOBIN 15.3 g/dL (12.0-15.5); LYMPH # 3.1 x10^3/uL (1.0-4.8); LYMPH % 36 % (24-48); MEAN CORPUSCULAR HEMOGLOBIN 26 pg (25-35); MEAN CORPUSCULAR HGB CONC 33 g/dL (31-37); MEAN CORPUSCULAR VOLUME 81 fL (79-100); MONO # 0.7 x10^3/uL (0.0-1.1); MONO % 9 % (0-9); NEUT # 4.6 x10^3/uL (1.8-7.7); NEUT % 53 % (31-73); PLATELET COUNT 249 x10^3/uL (140-400); RED BLOOD COUNT 5.81 x10^6/uL (3.50-5.40); RED CELL DISTRIBUTION WIDTH 23.1 % (11.5-14.5); WHITE BLOOD COUNT 8.6 x10^3/uL (4.0-11.0)
[2020-02-04 22:08] LABS: PROTHROMBIN TIME PATIENT 12.9 SEC (11.7-14.0)
[2020-02-04 22:11] LABS: CREATININE 0.8 mg/dL (0.6-1.0); GFR 89.1; POTASSIUM 3.5 mmol/L (3.5-5.1)
[2020-02-04 22:12] LABS: D-DIMER 0.71 ug/mlFEU (0.00-0.50)
[2020-02-04 22:14] LABS: ALBUMIN 3.5 g/dL (3.4-5.0); ALBUMIN/GLOBULIN RATIO 0.7 (1.0-1.7); MAGNESIUM 2.1 mg/dL (1.8-2.4); TOTAL BILIRUBIN 0.9 mg/dL (0.2-1.0); TOTAL PROTEIN 8.4 g/dL (6.4-8.2)
[2020-02-04] MEDS: NITROGLYCERIN SUBLINGUAL 0.4 MG BOTTLE OF 25. SL PRN ×3 (22:16→22:51)
[2020-02-04 22:23] LABS: CREATINE KINASE 40 U/L (26-192)
[2020-02-04] MEDS ORDERED: ASPIRIN 325 MG TABLET PO ONE (22:30)
[2020-02-04] MEDS ORDERED: CONTRAST GIVEN. MC PRN (22:30)
--- NOTE | 2020-02-04 22:32 | RAD ---
Chest AP portable at 2136: Reason for examination: Chest pain. Comparison is made to previous study dated 01/14/2020. The heart size is normal. Mediastinum is unremarkable. Lung sellers show some linear densities consistent with atelectasis at the lung bases. No consolidated infiltrates or pleural effusions are seen. No acute bony abnormalities are present. IMPRESSION: Linear atelectasis at the lung bases. Electronically signed by: Alysa Lopez MD (02/04/2020 10:29 PM) [place]
[2020-02-04 22:41] LABS: C-REACTIVE PROTEIN 4.5 mg/L (0-3.3)
[2020-02-04] MEDS ORDERED: IOHEXOL 350 MG/ML 100 ML VIAL. IV ONE (23:00)
[2020-02-04] MEDS ORDERED: methylPREDNISolone SOD SUCC PF 125 MG/2 ML VIAL. IV ONE (23:00)
--- NOTE | 2020-02-04 23:10 | RAD ---
CT ANGIOGRAPHY CHEST INDICATION: elevated d-dimer, SOA Comparison: Radiograph 02/04/2020. TECHNIQUE: Following the uneventful administration of intravenous contrast, 90 cc Omnipaque 350, axial CT sections were obtained through the lungs and upper abdomen. Multiplanar reconstructions and MIP images were obtained. RS compliance statement: One or more of the following individualized dose reduction techniques were utilized for this examination: 1. Automated exposure control 2. Adjustment of the mA and/or kV according to patient size 3. Use of iterative reconstruction technique FINDINGS: Pulmonary arteries: No evidence of pulmonary thromboembolic disease. Lungs and Airways: No pulmonary mass or consolidation. Dependent and subsegmental atelectasis. No abnormality of the central airways. Pleura: The pleural spaces are normal. Heart and Mediastinum: The visualized thyroid is normal in size and attenuation. No axillary or supraclavicular lymphadenopathy. Few conspicuous but not pathologically enlarged by CT criteria mediastinal lymph nodes. The heart and pericardium are within normal limits. The great vessels of the thorax are normal. Abdomen: Limited images through the upper abdomen show no abnormality of the visualized organs. Bones and Soft Tissues: Degenerative changes of the spine. Right convex thoracic curvature. IMPRESSION: 1. No evidence of pulmonary thromboembolic disease. 2. No pulmonary mass or consolidation. Electronically signed by: Yonis Guerra MD (02/04/2020 11:07 PM) [facility]
[2020-02-04] MEDS ORDERED: fentaNYL PF VIAL 100 MCG/2 ML VIAL IV PRN (23:15)
[2020-02-04] MEDS ORDERED: fentaNYL PF VIAL 100 MCG/2 ML VIAL IV ONE (23:30)
[2020-02-05] VITALS (7 sets, daily range): BP systolic 111–181; BP diastolic 77–102
[2020-02-05 04:48] LABS: ANISOCYTOSIS MOD; PLT ESTIMATE ADEQUATE (ADEQUATE); POLYCHROMASIA SLIGHT
[2020-02-05] MEDS ORDERED: ALBUTEROL SULFATE 2.5 MG/3 ML NEBU. NEB PRN (05:15)
[2020-02-05] MEDS ORDERED: CYCLOBENZAPRINE 10 MG TABLET. PO PRN (05:30)
[2020-02-05] MEDS: IPRATRPIUM/ALBUTEROL 0.5/2.5MG 3 ML NEBU. NEB SCH ×4 (07:27→17:35)
[2020-02-05] MEDS: BUDESONIDE 0.5 MG/2 ML NEBU. NEB SCH ×2 (07:28→17:35)
[2020-02-05] MEDS: oxyCODONE IR 5 MG TABLET PO PRN ×3 (07:56→20:27)
[2020-02-05] MEDS: amLODIPine BESYLATE 10 MG TABLET PO SCH (07:56)
[2020-02-05] MEDS: LOSARTAN POTASSIUM 50 MG TABLET. PO SCH (07:56)
[2020-02-05] MEDS: NICOTINE 21MG PATCH. TD SCH (07:57)
[2020-02-05] MEDS: oxyCODONE ER 15 MG TAB.ER.12H PO SCH ×2 (07:57→20:28)
[2020-02-05] MEDS ORDERED: NON FORMULARY ITEM (Albuterol Sulfate (Albuterol Sulfate Conc Neb Soln) 2.5 MG) NEB SCH (09:00)
[2020-02-05] MEDS ORDERED: NON FORMULARY ITEM (Mometasone/Formoterol (Dulera 200 Mcg/5 Mcg Inhaler) 2 PUFF) IH SCH (09:00)
[2020-02-05] MEDS: ALPRAZolam 0.25 MG TABLET PO PRN ×2 (09:26→21:35)
--- NOTE | 2020-02-05 11:53 | PDOC1 ---
History and Physical Date of Admission Date of Admission DATE: 02/05/20 TIME: 11:53 Identification/Chief Complaint Chief Complaint seen in er with acute dyspnea 59 year old female who presents to the emergency department with complaints of increased shortness of breath and chest pain in the left side of her chest that radiates down her left arm. denies any known exposure to COVID-19, states she has been staying at home. o2 dependent wears oxygen via nasal cannula all the time. /// denies any diaphoresis, dizziness, syncope, nausea, vomiting, abdominal pain, rash, sore throat, fever, cough, nasal congestion, body aches, or fatigue. shortness of breath has been so bad that she has not smoked cigarettes for the last 3 days. She also complains of upper back pain that she reports is chronic. She currently rates her pain a 10 out of 10 on the pain scale, she denies any alleviating factors. Past Medical History Past Medical History Past Medical History Past Medical History: Arthritis, COPD, Hypertension, Other Additional Past Medical Histor: TBI, gout, hernia Past Surgical History: , Knee Replacement, Other Additional Past Surgical Histo: carpal tunnel bilateral, bilateral foot surgery Smoking Status: Current Every Day Smoker Alcohol Use: None Drug Use: None fhx copd, htn Cardiovascular: HTN Pulmonary: No pertinent hx CENTRAL NERVOUS SYSTEM: Other GI: Other Heme/Onc: No pertinent hx Hepatobiliary: No pertinent hx Psych: No pertinent hx Musculoskeletal: low back pain, Osteoarthritis Rheumatologic: No pertinent hx Infectious disease: No pertinent hx Renal/: No pertinent hx Endocrine: No pertinent hx Past Surgical History Past Surgical History: , Other Family History Family History: Coronary Artery Disease, High Cholestrol, Hypertension Social History Smoke: Quit ALCOHOL: none Drugs: None Current Problem List Problem List Problems Medical Problems: (1) Chest pain Status: Acute (2) Person under investigation for COVID-19 Status: Acute (3) Shortness of breath Status: Acute Current Medications Current Medications Current Medications Aspirin (Ryan Aspirin) 325 mg 1X ONCE PO Last administered on 02/04/20at 22:16; Start 02/04/20 at 22:30; Stop 02/04/20 at 22:31; Status DC Nitroglycerin (Nitrostat) 0.4 mg PRN Q5MIN PRN SL CHEST PAIN Last administered on 02/04/20at 22:51; Start 02/04/20 at 22:15 Iohexol (Omnipaque 350 Mg/ml) 90 ml 1X ONCE IV Last administered on 02/04/20at 22:56; Start 02/04/20 at 23:00; Stop 02/04/20 at 23:01; Status DC Info (CONTRAST GIVEN -- Rx MONITORING) 1 each PRN DAILY PRN MC SEE COMMENTS; Start 02/04/20 at 22:30; Stop 02/06/20 at 22:29 Methylprednisolone Sodium Succinate (SOLU-Medrol 125MG VIAL) 125 mg 1X ONCE IV Last administered on 02/04/20at 22:52; Start 02/04/20 at 23:00; Stop 02/04/20 at 23:01; Status DC Fentanyl Citrate (Fentanyl 2ml Vial) 50 mcg 1X ONCE IV Last administered on 02/04/20at 23:43; Start 02/04/20 at 23:30; Stop 02/04/20 at 23:31; Status DC Fentanyl Citrate (Fentanyl 2ml Vial) 50 mcg PRN Q2HR PRN IV SEVERE PAIN 7-10; Start 02/04/20 at 23:15; Stop 02/05/20 at 23:14 Albuterol Sulfate (Ventolin Neb Soln) 2.5 mg PRN Q4HRS PRN NEB COUGH; Start 02/05/20 at 05:15 Alprazolam (Xanax) 0.25 mg PRN Q8HRS PRN PO ANXIETY / AGITATION Last administered on 02/05/20at 09:26; Start 02/05/20 at 05:15 Amlodipine Besylate (Norvasc) 10 mg DAILY PO Last administered on 02/05/20at 07:56; Start 02/05/20 at 09:00 Non-Formulary Medication (Albuterol Sulfate (Albuterol Sulfate Conc Neb Soln)) 2.5 mg QID NEB ; Start 02/05/20 at 09:00; Status UNV Cyclobenzaprine HCl (Flexeril) 10 mg PRN TID PRN PO MUSCLE SPASMS; Start 02/05/20 at 05:30 Losartan Potassium (Cozaar) 100 mg DAILY PO Last administered on 02/05/20at 07:56; Start 02/05/20 at 09:00 Non-Formulary Medication (Mometasone/ Formoterol (Dulera 200 Mcg/5 Mcg Inhaler)) 2 puff BID IH ; Start 02/05/20 at 09:00; Status UNV Oxycodone HCl (Roxicodone) 20 mg PRN Q6HRS PRN PO SEVERE PAIN 7-10 Last administered on 02/05/20at 07:56; Start 02/05/20 at 05:15 Oxycodone HCl (OxyCONTIN) 30 mg Q12HR PO Last administered on 02/05/20at 07:57; Start 02/05/20 at 09:00 Nicotine (Nicoderm Cq 21mg) 1 patch DAILY TD Last administered on 02/05/20at 07:57; Start 02/05/20 at 09:00 Albuterol/ Ipratropium (Duoneb) 3 ml RTQID NEB ; Start 02/05/20 at 08:00 Budesonide (Pulmicort) 0.5 mg RTBID NEB ; Start 02/05/20 at 08:00 Active Scripts Active Hydrocodone-Apap 5-325 (Hydrocodone Bit/Acetaminophen) 1 Tab Tablet 1 Tab PO PRN Q6HRS PRN Zithromax (Azithromycin) 250 Mg Tablet 250 Mg PO DAILY 3 Days Cefdinir 300 Mg Capsule 1 Cap PO BID 7 Days Xanax (Alprazolam) 0.25 Mg Tablet 0.25 Mg PO PRN Q6HRS PRN 5 Days Alprazolam 0.25 Mg Tablet 0.25 Mg PO PRN Q8HRS PRN 10 Days [Nicotine] 1 PATCH Patch 1 Patch TD DAILY Reported Oxycontin (Oxycodone HCl) 30 Mg Tab.er.12h 1 Tab PO BID MDD 2 Tablet(s) 30 Days Oxycodone Hcl 20 Mg Tablet 20 Mg PO PRN Q6HRS PRN Proair Hfa Inhaler (Albuterol Sulfate) 8.5 Gm Hfa.aer.ad 2 Puff IH PRN Q4HRS PRN Albuterol Sulfate Conc Neb Soln (Albuterol Sulfate) 2.5 Mg/0.5 Ml Vial.neb 2.5 Mg NEB QID Dulera 200 Mcg/5 Mcg Inhaler (Mometasone/Formoterol) 13 Gm Hfa.aer.ad 2 Puff IH BID Norvasc (Amlodipine Besylate) 5 Mg Tablet 10 Mg PO BID Soma (Carisoprodol) 350 Mg Tablet 350 Mg PO PRN Q6-8HRS PRN Cozaar (Losartan Potassium) 100 Mg Tablet 100 Mg PO DAILY Allergies Allergies: Coded Allergies: No Known Drug Allergies (Unverified , 07/20/17) ROS Review of System Review of Systems: Review of Systems: Constitutional: Denies fever or chills. [] Eyes: Denies change in visual acuity. [] HENT: Denies nasal congestion or sore throat. [] Respiratory: See HPI Cardiovascular: Denies palpitations or edema; see HPI. [] GI: Denies abdominal pain, nausea, vomiting, or diarrhea. [] Musculoskeletal: Denies joint pain; see HPI Integument: Denies rash. [] Neurologic: Denies headache Psychiatric: Denies depression or anxiety. [] 14 pt ros otherwise neg Physical Exam Physical Exam Constitutional: Well developed, well nourished, no acute distress, non-toxic appearance. [] HENT: Normocephalic, atraumatic, bilateral external ears normal, oropharynx moist, nose normal. [] Eyes: PERRLA, conjunctiva normal, no discharge. [] Neck: Normal range of motion, no stridor. [] Cardiovascular:Heart rate regular rhythm, no murmur [] Lungs & Thorax: Bilateral breath sounds coarse throughout all sellers, no wheezing, regular respirations, speaking full sentences, no retractions Abdomen: soft, no tenderness Skin: Warm, dry, no erythema, no rash. [] Extremities: No cyanosis, no clubbing, ROM intact, no edema. [] Neurologic: Alert and oriented X 3,no focal deficits noted. [] Psychologic: Affect normal, judgement normal, mood normal. [] General: Alert, Oriented X3, Cooperative HEENT: Atraumatic, EOMI, Mucous membr. moist/pink Breasts: Not examined Rectal Exam: not examined PELVIC: Examination not indicated Extremities: No cyanosis Neuro: Normal speech, Cranial nerves 3-12 NL Psych/Mental Status: Mental status NL, Mood NL Vitals Vitals Vital Signs Date Time Temp Pulse Resp B/P (MAP) Pulse Ox O2 Delivery O2 Flow Rate FiO2 02/05/20 11:22 97.2 82 18 136/80 (98) 96 Nasal Cannula 2.0 97.2 Labs Labs Laboratory Tests Test 02/04/20 21:30 02/04/20 21:35 02/05/20 04:00 Ferritin 22 ng/mL (8-252) C-Reactive Protein, Quantitative 4.5 mg/L (0-3.3) White Blood Count 8.6 x10^3/uL (4.0-11.0) Red Blood Count 5.81 x10^6/uL (3.50-5.40) Hemoglobin 15.3 g/dL (12.0-15.5) Hematocrit 46.7 % (36.0-47.0) Mean Corpuscular Volume 81 fL (79-100) Mean Corpuscular Hemoglobin 26 pg (25-35) Mean Corpuscular Hemoglobin Concent 33 g/dL (31-37) Red Cell Distribution Width 23.1 % (11.5-14.5) Platelet Count 249 x10^3/uL (140-400) Neutrophils (%) (Auto) 53 % (31-73) Lymphocytes (%) (Auto) 36 % (24-48) Monocytes (%) (Auto) 9 % (0-9) Eosinophils (%) (Auto) 1 % (0-3) Basophils (%) (Auto) 1 % (0-3) Neutrophils # (Auto) 4.6 x10^3/uL (1.8-7.7) Lymphocytes # (Auto) 3.1 x10^3/uL (1.0-4.8) Monocytes # (Auto) 0.7 x10^3/uL (0.0-1.1) Eosinophils # (Auto) 0.1 x10^3/uL (0.0-0.7) Basophils # (Auto) 0.1 x10^3/uL (0.0-0.2) Platelet Estimate Adequate (ADEQUATE) Polychromasia Slight Anisocytosis Mod Prothrombin Time 12.9 SEC (11.7-14.0) Prothromb Time International Ratio 1.0 (0.8-1.1) Activated Partial Thromboplast Time 28 SEC (24-38) D-Dimer (Leela) 0.71 ug/mlFEU (0.00-0.50) Sodium Level 140 mmol/L (136-145) Potassium Level 3.5 mmol/L (3.5-5.1) Chloride Level 99 mmol/L (98-107) Carbon Dioxide Level 33 mmol/L (21-32) Anion Gap 8 (6-14) Blood Urea Nitrogen 11 mg/dL (7-20) Creatinine 0.8 mg/dL (0.6-1.0) Estimated GFR (Cockcroft-Gault) 89.1 BUN/Creatinine Ratio 14 (6-20) Glucose Level 91 mg/dL (70-99) Calcium Level 9.0 mg/dL (8.5-10.1) Magnesium Level 2.1 mg/dL (1.8-2.4) Total Bilirubin 0.9 mg/dL (0.2-1.0) Aspartate Amino Transf (AST/SGOT) 20 U/L (15-37) Alanine Aminotransferase (ALT/SGPT) 11 U/L (14-59) Alkaline Phosphatase 100 U/L (46-116) Creatine Kinase 40 U/L (26-192) Creatine Kinase MB (Mass) 0.6 ng/mL (0.0-3.6) Creatine Kinase MB Relative Index % (0-4) Troponin I Quantitative < 0.017 ng/mL (0.000-0.055) < 0.017 ng/mL (0.000-0.055) IW-Flc-V-Type Natriuretic Peptide 1088 pg/mL (0-124) Total Protein 8.4 g/dL (6.4-8.2) Albumin 3.5 g/dL (3.4-5.0) Albumin/Globulin Ratio 0.7 (1.0-1.7) Lipase 40 U/L (73-393) Triglycerides Level 47 mg/dL (0-150) Cholesterol Level 166 mg/dL (0-200) LDL Cholesterol, Calculated 116 mg/dL (0-100) VLDL Cholesterol, Calculated 9 mg/dL (0-40) Non-HDL Cholesterol Calculated 125 mg/dL (0-129) HDL Cholesterol 41 mg/dL (40-60) Cholesterol/HDL Ratio 4.0 Laboratory Tests Test 02/04/20 21:30 02/04/20 21:35 02/05/20 04:00 Ferritin 22 ng/mL (8-252) C-Reactive Protein, Quantitative 4.5 mg/L (0-3.3) White Blood Count 8.6 x10^3/uL (4.0-11.0) Red Blood Count 5.81 x10^6/uL (3.50-5.40) Hemoglobin 15.3 g/dL (12.0-15.5) Hematocrit 46.7 % (36.0-47.0) Mean Corpuscular Volume 81 fL (79-100) Mean Corpuscular Hemoglobin 26 pg (25-35) Mean Corpuscular Hemoglobin Concent 33 g/dL (31-37) Red Cell Distribution Width 23.1 % (11.5-14.5) Platelet Count 249 x10^3/uL (140-400) Neutrophils (%) (Auto) 53 % (31-73) Lymphocytes (%) (Auto) 36 % (24-48) Monocytes (%) (Auto) 9 % (0-9) Eosinophils (%) (Auto) 1 % (0-3) Basophils (%) (Auto) 1 % (0-3) Neutrophils # (Auto) 4.6 x10^3/uL (1.8-7.7) Lymphocytes # (Auto) 3.1 x10^3/uL (1.0-4.8) Monocytes # (Auto) 0.7 x10^3/uL (0.0-1.1) Eosinophils # (Auto) 0.1 x10^3/uL (0.0-0.7) Basophils # (Auto) 0.1 x10^3/uL (0.0-0.2) Platelet Estimate Adequate (ADEQUATE) Polychromasia Slight Anisocytosis Mod Prothrombin Time 12.9 SEC (11.7-14.0) Prothromb Time International Ratio 1.0 (0.8-1.1) Activated Partial Thromboplast Time 28 SEC (24-38) D-Dimer (Leela) 0.71 ug/mlFEU (0.00-0.50) Sodium Level 140 mmol/L (136-145) Potassium Level 3.5 mmol/L (3.5-5.1) Chloride Level 99 mmol/L (98-107) Carbon Dioxide Level 33 mmol/L (21-32) Anion Gap 8 (6-14) Blood Urea Nitrogen 11 mg/dL (7-20) Creatinine 0.8 mg/dL (0.6-1.0) Estimated GFR (Cockcroft-Gault) 89.1 BUN/Creatinine Ratio 14 (6-20) Glucose Level 91 mg/dL (70-99) Calcium Level 9.0 mg/dL (8.5-10.1) Magnesium Level 2.1 mg/dL (1.8-2.4) Total Bilirubin 0.9 mg/dL (0.2-1.0) Aspartate Amino Transf (AST/SGOT) 20 U/L (15-37) Alanine Aminotransferase (ALT/SGPT) 11 U/L (14-59) Alkaline Phosphatase 100 U/L (46-116) Creatine Kinase 40 U/L (26-192) Creatine Kinase MB (Mass) 0.6 ng/mL (0.0-3.6) Creatine Kinase MB Relative Index % (0-4) Troponin I Quantitative < 0.017 ng/mL (0.000-0.055) < 0.017 ng/mL (0.000-0.055) JV-Alg-Q-Type Natriuretic Peptide 1088 pg/mL (0-124) Total Protein 8.4 g/dL (6.4-8.2) Albumin 3.5 g/dL (3.4-5.0) Albumin/Globulin Ratio 0.7 (1.0-1.7) Lipase 40 U/L (73-393) Triglycerides Level 47 mg/dL (0-150) Cholesterol Level 166 mg/dL (0-200) LDL Cholesterol, Calculated 116 mg/dL (0-100) VLDL Cholesterol, Calculated 9 mg/dL (0-40) Non-HDL Cholesterol Calculated 125 mg/dL (0-129) HDL Cholesterol 41 mg/dL (40-60) Cholesterol/HDL Ratio 4.0 Images Images Chest AP portable at 2136: Reason for examination: Chest pain. Comparison is made to previous study dated 01/14/2020. The heart size is normal. Mediastinum is unremarkable. Lung sellers show some linear densities consistent with atelectasis at the lung bases. No consolidated infiltrates or pleural effusions are seen. No acute bony abnormalities are present. IMPRESSION: Linear atelectasis at the lung bases. Electronically signed by: Alysa Arreola MD (02/04/2020 10:29 PM) [facility] DI[facility]ATED and SIGNED BY: ALYSA ARREOLA MD DATE: 02/04/20 CT ANGIOGRAPHY CHEST INDICATION: elevated d-dimer, SOA Comparison: Radiograph 02/04/2020. TECHNIQUE: Following the uneventful administration of intravenous contrast, 90 cc Omnipaque 350, axial CT sections were obtained through the lungs and upper abdomen. Multiplanar reconstructions and MIP images were obtained. PQRS compliance statement: One or more of the following individualized dose reduction techniques were utilized for this examination: 1. Automated exposure control 2. Adjustment of the mA and/or kV according to patient size 3. Use of iterative reconstruction technique FINDINGS: Pulmonary arteries: No evidence of pulmonary thromboembolic disease. Lungs and Airways: No pulmonary mass or consolidation. Dependent and subsegmental atelectasis. No abnormality of the central airways. Pleura: The pleural spaces are normal. Heart and Mediastinum: The visualized thyroid is normal in size and attenuation. No axillary or supraclavicular lymphadenopathy. Few conspicuous but not pathologically enlarged by CT criteria mediastinal lymph nodes. The heart and pericardium are within normal limits. The great vessels of the thorax are normal. Abdomen: Limited images through the upper abdomen show no abnormality of the visualized organs. Bones and Soft Tissues: Degenerative changes of the spine. Right convex thoracic curvature. IMPRESSION: 1. No evidence of pulmonary thromboembolic disease. 2. No pulmonary mass or consolidation. Electronically signed by: Ashley Guerra MD (02/04/2020 11:07 PM) [facility] DICTATED and SIGNED BY: ASHLEY GUERRA MD DATE: 02/04/202306 VTE Prophylaxis Ordered VTE Prophylaxis Devices: No VTE Pharmacological Prophylaxi: Yes Assessment/Plan Assessment/Plan IMPRESSION: 1. No evidence of pulmonary thromboembolic disease. by CTA 02/03 2. No pulmonary mass or consolidation. 3. Acute exac of severe COPD 3. Chest pain , atypical, r/o cervical radiculopathy PLAN ADMIT CONSULT PULM consult cardiology ct c/s emperic iv zosyn, zithromax dct prophylaxis tapering iv steroids 76 min pt exam, chart review, > 50% of time spent with exam, chart review, pt care coordination Justicifation of Admission Dx: Justifications for Admission: Justification of Admission Dx: N/A GAIL VILLA MD Feb 05, 2020 11:53
[2020-02-05] MEDS ORDERED: AZITHRMYCN 500MG IVPB FOR OMNI 250 ML IV ONE (12:15)
[2020-02-05] MEDS ORDERED: IPRATRPIUM/ALBUTEROL 0.5/2.5MG 3 ML NEBU. NEB SCH (12:15)
[2020-02-05] MEDS ORDERED: 0.9 % SODIUM CHLORIDE 10 ML DISP.SYRIN. IV PRN (12:15)
[2020-02-05] MEDS ORDERED: ACETAMINOPHEN 325 MG TABLET. PO PRN (12:15)
[2020-02-05] MEDS ORDERED: LORazepam 0.5 MG TABLET PO PRN (12:15)
[2020-02-05] MEDS ORDERED: ONDANSETRON PF 4 MG/2 ML VIAL. IV PRN (12:15)
[2020-02-05] MEDS ORDERED: guaiFENesin ORAL 200 MG/10 ML LIQUID. PO PRN (12:15)
[2020-02-05] MEDS ORDERED: DOCUSATE SODIUM 100 MG CAPSULE. PO PRN (12:15)
[2020-02-05] MEDS ORDERED: PIP/TAZO PER PHARMACY MC PRN (12:15)
[2020-02-05] MEDS ORDERED: SODIUM PHOSPHATES 19/7GM 133 ML ENEMA. PR PRN (12:15)
--- NOTE | 2020-02-05 12:27 | EKG ---
[facility] [address] [place] [address] Test Date: 2020-02-04 Test Time: 21:29:47 Pat Name: IRENE OLSEN Department: Room: Gender: F [employer]: : 1960 Requested By: PANDA ELLISON Order Number: [id number] Reading MD: Measurements Intervals [place] Rate: 96 P: 46 TN: 132 QRS: 52 QRSD: 86 T: 67 QT: 356 QTc: 456 Interpretive Statements SINUS RHYTHM QRS(T) CONTOUR ABNORMALITY CONSIDER ANTEROLATERAL MYOCARDIAL DAMAGE POSSIBLY ABNORMAL ECG RI6.01 No previous ECG available for comparison
--- NOTE | 2020-02-05 12:28 | PDOC2 ---
CARDIOLOGY CONSULT NOTE DATE OF SERVICE: DATE: 02/05/20 TIME: 12:24 CHIEF COMPLAINT: Breathing difficulty and some chest pressure HPI: 59-year-old woman with past medical history of severe COPD who presents to the hospital in the setting of recurrent COPD symptoms and some chest pressure. Cardiology was asked to evaluate her for chest pain. She does not have any baseline angina. She has chronic dyspnea related to her COPD. Unfortunately she continues to smoke. Since arrival she is not had any significant abnorm alities on her lab work at her EKG is unremarkable. PMHX: COPD and hypertension SOCHX: Continues to smoke about a pack a day FAMHX: Noncontributory CURRENT MEDS: Current Medications Medications (Trade) Dose Ordered Sig/Michelle Route PRN Reason Start Time Stop Time Status Last Admin Dose Admin Aspirin (Ryan Aspirin) 325 mg 1X ONCE PO 02/04/20 22:30 02/04/20 22:31 DC 02/04/20 22:16 Nitroglycerin (Nitrostat) 0.4 mg PRN Q5MIN PRN SL CHEST PAIN 02/04/20 22:15 02/04/20 22:51 Iohexol (Omnipaque 350 Mg/ml) 90 ml 1X ONCE IV 02/04/20 23:00 02/04/20 23:01 DC 02/04/20 22:56 Methylprednisolone Sodium Succinate (SOLU-Medrol 125MG VIAL) 125 mg 1X ONCE IV 02/04/20 23:00 02/04/20 23:01 DC 02/04/20 22:52 Fentanyl Citrate (Fentanyl 2ml Vial) 50 mcg 1X ONCE IV 02/04/20 23:30 02/04/20 23:31 DC 02/04/20 23:43 Alprazolam (Xanax) 0.25 mg PRN Q8HRS PRN PO ANXIETY / AGITATION 02/05/20 05:15 02/05/20 09:26 Amlodipine Besylate (Norvasc) 10 mg DAILY PO 02/05/20 09:00 02/05/20 07:56 Losartan Potassium (Cozaar) 100 mg DAILY PO 02/05/20 09:00 02/05/20 07:56 Oxycodone HCl (Roxicodone) 20 mg PRN Q6HRS PRN PO SEVERE PAIN 7-10 02/05/20 05:15 02/05/20 07:56 Oxycodone HCl (OxyCONTIN) 30 mg Q12HR PO 02/05/20 09:00 02/05/20 07:57 Nicotine (Nicoderm Cq 21mg) 1 patch DAILY TD 02/05/20 09:00 02/05/20 07:57 ALLERGIES: Allergies Coded Allergies Type Severity Reaction Last Updated Verified No Known Drug Allergies 07/20/17 No ROS: Negative unless otherwise mentioned above in HPI PHYSICAL EXAM: Vital Signs/I&O: Vital Signs Date Time Temp Pulse Resp B/P (MAP) Pulse Ox O2 Delivery O2 Flow Rate FiO2 02/05/20 11:22 97.2 82 18 136/80 (98) 96 Nasal Cannula 2.0 97.2 I & O 02/04/20 02/04/20 02/05/20 15:00 23:00 07:00 Intake Total 480 ml Balance 480 ml Physical Exam: GEN.: No apparent distress. Alert and oriented. HEENT: Head is normocephalic, atraumatic NECK: Supple. ABDOMEN: Soft, nontender. EXTREMITIES: Without any cyanosis. NEUROLOGIC: Normal speech, normal tone PSYCHIATRIC: Normal affect, normal mood. SKIN: No ulcerations DIAGNOSTIC TESTING: EKG and cardiac biomarkers are unremarkable Echo from [address] of the chest is unremarkable Lab Laboratory Tests Test 02/04/20 21:30 02/04/20 21:35 02/05/20 04:00 Ferritin 22 ng/mL (8-252) C-Reactive Protein, Quantitative 4.5 mg/L (0-3.3) H White Blood Count 8.6 x10^3/uL (4.0-11.0) Red Blood Count 5.81 x10^6/uL (3.50-5.40) H Hemoglobin 15.3 g/dL (12.0-15.5) Hematocrit 46.7 % (36.0-47.0) Mean Corpuscular Volume 81 fL (79-100) Mean Corpuscular Hemoglobin 26 pg (25-35) Mean Corpuscular Hemoglobin Concent 33 g/dL (31-37) Red Cell Distribution Width 23.1 % (11.5-14.5) H Platelet Count 249 x10^3/uL (140-400) Neutrophils (%) (Auto) 53 % (31-73) Lymphocytes (%) (Auto) 36 % (24-48) Monocytes (%) (Auto) 9 % (0-9) Eosinophils (%) (Auto) 1 % (0-3) Basophils (%) (Auto) 1 % (0-3) Neutrophils # (Auto) 4.6 x10^3/uL (1.8-7.7) Lymphocytes # (Auto) 3.1 x10^3/uL (1.0-4.8) Monocytes # (Auto) 0.7 x10^3/uL (0.0-1.1) Eosinophils # (Auto) 0.1 x10^3/uL (0.0-0.7) Basophils # (Auto) 0.1 x10^3/uL (0.0-0.2) Platelet Estimate Adequate (ADEQUATE) Polychromasia Slight Anisocytosis Mod Prothrombin Time 12.9 SEC (11.7-14.0) Prothromb Time International Ratio 1.0 (0.8-1.1) Activated Partial Thromboplast Time 28 SEC (24-38) D-Dimer (Leela) 0.71 ug/mlFEU (0.00-0.50) H Sodium Level 140 mmol/L (136-145) Potassium Level 3.5 mmol/L (3.5-5.1) Chloride Level 99 mmol/L (98-107) Carbon Dioxide Level 33 mmol/L (21-32) H Anion Gap 8 (6-14) Blood Urea Nitrogen 11 mg/dL (7-20) Creatinine 0.8 mg/dL (0.6-1.0) Estimated GFR (Cockcroft-Gault) 89.1 BUN/Creatinine Ratio 14 (6-20) Glucose Level 91 mg/dL (70-99) Calcium Level 9.0 mg/dL (8.5-10.1) Total Bilirubin 0.9 mg/dL (0.2-1.0) Aspartate Amino Transf (AST/SGOT) 20 U/L (15-37) Alkaline Phosphatase 100 U/L (46-116) Creatine Kinase 40 U/L (26-192) Creatine Kinase MB (Mass) 0.6 ng/mL (0.0-3.6) Creatine Kinase MB Relative Index % (0-4) Total Protein 8.4 g/dL (6.4-8.2) H Albumin 3.5 g/dL (3.4-5.0) Albumin/Globulin Ratio 0.7 (1.0-1.7) L Lipase 40 U/L (73-393) L Cholesterol Level 166 mg/dL (0-200) LDL Cholesterol, Calculated 116 mg/dL (0-100) H VLDL Cholesterol, Calculated 9 mg/dL (0-40) Non-HDL Cholesterol Calculated 125 mg/dL (0-129) Cholesterol/HDL Ratio 4.0 Laboratory Tests 02/04/20 21:35 ASSESSMENT: 1. Atypical chest pain 2. COPD exacerbation 3. Hypertension PLAN: 1. Continue current medical therapy for her hypertension and COPD treatment per PCP 2. We will repeat an echocardiogram to rule out any significant pulmonary hypertension as a source of her worsening dyspnea. 3. Consider outpatient ischemic evaluation. CT angiography is otherwise unremarkable. Overall low risk presentation. Can be discharged after echocardiogram obtained from CV perspective. THanks RACHAEL GANNON MD Feb 05, 2020 12:28
[2020-02-05] MEDS: PIPERACILLIN/TAZOBACTAM 3.375 GM in IV NORMAL SALINE 50ML 50 ML IV SCH ×3 (12:42→23:20)
--- NOTE | 2020-02-05 13:11 | CONS ---
DATE OF CONSULTATION: 02/05/2020 I was asked to see this 59-year-old lady for acute respiratory failure, acute exacerbation of COPD. HISTORY OF PRESENT ILLNESS: She has a history of [id number] smoking, continues to smoke. She has not felt well for the past 3-4 days. She has had increased shortness of breath, cough with sputum production, wheezing. She did have chest pain, but it is resolved. She does not have any chest pain now. There is no history of COVID-19 exposure. She denies nausea, vomiting, abdominal pain, fever, chills, or body ache. PAST MEDICAL HISTORY: COPD, arthritis, hypertension, , knee replacement. ALLERGIES: No known drug allergies. MEDICATIONS: Currently, she is on Lovenox, Solu-Medrol, Zosyn, azithromycin, and Pulmicort. SOCIAL HISTORY: History of [id number] smoking, continues to smoke. FAMILY HISTORY: Hypertension. REVIEW OF SYSTEMS: As mentioned as above, other systems are otherwise negative. PHYSICAL EXAMINATION: GENERAL: A well-developed lady. She is alert and oriented. She is not in distress. VITAL SIGNS: Her O2 saturation on 2 liters of oxygen is 96%, respiratory rate 18, heart rate 82, blood pressure 136/80, temperature 97.2. HEENT: Normocephalic, atraumatic. CARDIOVASCULAR: Regular rate and rhythm. CHEST: Inspection is normal. LUNGS: There are no accessory muscle use. ABDOMEN: Not obese. EXTREMITIES: There is no edema. SKIN: No rash. LABORATORY DATA: I reviewed the following lab data: CT angiogram did not show infiltrate or pulmonary embolism. WBC 8.6, hemoglobin 15.3, platelet 249. Sodium 140, potassium 3.5, chloride 99, CO2 is 33, BUN 11, creatinine 0.8. Troponin less than 0.017. BNP 1088. Ferritin 22. IMPRESSION: 1. Acute respiratory failure secondary to acute exacerbation of chronic obstructive pulmonary disease, acute bronchitis, rule out COVID-19. 2. Acute exacerbation of chronic obstructive pulmonary disease. 3. Acute bronchitis. 4. Tobacco habituation. 5. Hypertension. PLAN AND RECOMMENDATIONS: 1. I have discussed smoking cessation with her in detail. I have advised her to stop smoking forever. 2. Continue Solu-Medrol. Monitor blood sugar. 3. Continue antibiotic. 4. Follow COVID-19 testing. If negative, start bronchodilator. 5. Lovenox for DVT prophylaxis. 6. Protonix for stress ulcer prophylaxis. Thank you very much for allowing me to participate in the care of this very nice lady. SINA LEIVA M.D. DR: TACOS/carolee JOB#: [id number] / [id number]
[2020-02-05] MEDS: ENOXAPARIN 40 MG/0.4 ML SYRINGE. SQ SCH (14:12)
[2020-02-05] MEDS: methylPREDNISolone SOD SUCC PF 125 MG/2 ML VIAL. IV SCH ×2 (14:12→21:36)
[2020-02-05] MEDS: AZITHROMYCIN 500 MG in IV NORMAL SALINE 250ML 250 ML IV SCH (14:13)
--- NOTE | 2020-02-05 16:54 | RAD ---
CT CERVICAL SPINE WO CONTRAST DATE: 02/05/2020 1:59 PM INDICATION: Reason: severe cervical radiculopathy / Spl. Instructions: / History: TECHNIQUE: Noncontrast CT of the cervical spine was performed. Sagittal and coronal reformats were performed and evaluated. One or more of the following dose reduction techniques were utilized: Automated exposure control (AEC), Adjustment of mA and/or kV according to patient size, Use of iterative reconstruction technique such as ASiR, CT scan done according to ALARA and image gently/image wisely COMPARISON: None. FINDINGS: The cervical spine is normally aligned. No acute fracture. No aggressive lytic or blastic osseous lesions. Multilevel degenerative disc space height loss, worst and moderate at C5-6 and C6-7. Multilevel mild spinal canal stenosis secondary to disc protrusions and marginal osteophytes. Multilevel mild and moderate neuroforaminal narrowing secondary to uncovertebral arthrosis. Multilevel mild and moderate facet arthrosis. The thyroid gland is normal. No cervical lymphadenopathy. The visualized aerodigestive tract is normal. The visualized portions of the lungs are clear. IMPRESSION: 1. No acute fracture or dislocation. 2. Mild to moderate cervical spondylosis. This could be further characterized with MRI, as clinically warranted. Electronically signed by: Yonis Guerra MD (02/05/2020 4:51 PM) [facility]
[2020-02-05] MEDS: LACTOBACILLUS RHAMNOSUS GG 1 CAPSULE. PO SCH (20:28)
[2020-02-06] MEDS: oxyCODONE IR 5 MG TABLET PO PRN ×3 (02:26→15:04)
[2020-02-06 02:46] VITALS: BP 159/87
[2020-02-06] MEDS: PIPERACILLIN/TAZOBACTAM 3.375 GM in IV NORMAL SALINE 50ML 50 ML IV SCH ×2 (06:19→13:57)
[2020-02-06] MEDS: methylPREDNISolone SOD SUCC PF 125 MG/2 ML VIAL. IV SCH ×2 (06:20→14:05)
[2020-02-06 07:10] VITALS: BP 148/84
[2020-02-06] MEDS: BUDESONIDE 0.5 MG/2 ML NEBU. NEB SCH (08:00)
[2020-02-06] MEDS: IPRATRPIUM/ALBUTEROL 0.5/2.5MG 3 ML NEBU. NEB SCH ×2 (08:00→11:52)
[2020-02-06] MEDS: NICOTINE 21MG PATCH. TD SCH (08:26)
[2020-02-06] MEDS: amLODIPine BESYLATE 10 MG TABLET PO SCH (08:26)
[2020-02-06] MEDS: LOSARTAN POTASSIUM 50 MG TABLET. PO SCH (08:27)
[2020-02-06] MEDS: oxyCODONE ER 15 MG TAB.ER.12H PO SCH (08:28)
[2020-02-06] MEDS: LACTOBACILLUS RHAMNOSUS GG 1 CAPSULE. PO SCH (08:28)
[2020-02-06 11:15] VITALS: BP 152/76
--- NOTE | 2020-02-06 11:59 | PDOC ---
PULMONARY PROGRESS NOTES DATE: 02/06/20 TIME: 11:57 Subjective NO DANA Vitals Vital Signs Date Time Temp Pulse Resp B/P (MAP) Pulse Ox O2 Delivery O2 Flow Rate FiO2 02/06/20 08:54 92 Room Air 02/06/20 08:27 82 159/87 02/06/20 07:10 97.9 18 97.9 02/06/20 00:28 2.0 General: Alert, Oriented X4, No acute distress Lungs: Wheezing Cardiovascular: S1, S2 Abdomen: Soft Extremities: No Edema Labs Laboratory Tests Test 02/04/20 21:30 02/04/20 21:35 02/05/20 04:00 02/05/20 12:30 Ferritin 22 ng/mL (8-252) C-Reactive Protein, Quantitative 4.5 mg/L (0-3.3) White Blood Count 8.6 x10^3/uL (4.0-11.0) Red Blood Count 5.81 x10^6/uL (3.50-5.40) Hemoglobin 15.3 g/dL (12.0-15.5) Hematocrit 46.7 % (36.0-47.0) Mean Corpuscular Volume 81 fL (79-100) Mean Corpuscular Hemoglobin 26 pg (25-35) Mean Corpuscular Hemoglobin Concent 33 g/dL (31-37) Red Cell Distribution Width 23.1 % (11.5-14.5) Platelet Count 249 x10^3/uL (140-400) Neutrophils (%) (Auto) 53 % (31-73) Lymphocytes (%) (Auto) 36 % (24-48) Monocytes (%) (Auto) 9 % (0-9) Eosinophils (%) (Auto) 1 % (0-3) Basophils (%) (Auto) 1 % (0-3) Neutrophils # (Auto) 4.6 x10^3/uL (1.8-7.7) Lymphocytes # (Auto) 3.1 x10^3/uL (1.0-4.8) Monocytes # (Auto) 0.7 x10^3/uL (0.0-1.1) Eosinophils # (Auto) 0.1 x10^3/uL (0.0-0.7) Basophils # (Auto) 0.1 x10^3/uL (0.0-0.2) Platelet Estimate Adequate (ADEQUATE) Polychromasia Slight Anisocytosis Mod Prothrombin Time 12.9 SEC (11.7-14.0) Prothromb Time International Ratio 1.0 (0.8-1.1) Activated Partial Thromboplast Time 28 SEC (24-38) D-Dimer (Leela) 0.71 ug/mlFEU (0.00-0.50) Sodium Level 140 mmol/L (136-145) Potassium Level 3.5 mmol/L (3.5-5.1) Chloride Level 99 mmol/L (98-107) Carbon Dioxide Level 33 mmol/L (21-32) Anion Gap 8 (6-14) Blood Urea Nitrogen 11 mg/dL (7-20) Creatinine 0.8 mg/dL (0.6-1.0) Estimated GFR (Cockcroft-Gault) 89.1 BUN/Creatinine Ratio 14 (6-20) Glucose Level 91 mg/dL (70-99) Calcium Level 9.0 mg/dL (8.5-10.1) Magnesium Level 2.1 mg/dL (1.8-2.4) Total Bilirubin 0.9 mg/dL (0.2-1.0) Aspartate Amino Transf (AST/SGOT) 20 U/L (15-37) Alanine Aminotransferase (ALT/SGPT) 11 U/L (14-59) Alkaline Phosphatase 100 U/L (46-116) Creatine Kinase 40 U/L (26-192) Creatine Kinase MB (Mass) 0.6 ng/mL (0.0-3.6) Creatine Kinase MB Relative Index % (0-4) Troponin I Quantitative < 0.017 ng/mL (0.000-0.055) < 0.017 ng/mL (0.000-0.055) < 0.017 ng/mL (0.000-0.055) CT-Omp-W-Type Natriuretic Peptide 1088 pg/mL (0-124) Total Protein 8.4 g/dL (6.4-8.2) Albumin 3.5 g/dL (3.4-5.0) Albumin/Globulin Ratio 0.7 (1.0-1.7) Lipase 40 U/L (73-393) Triglycerides Level 47 mg/dL (0-150) Cholesterol Level 166 mg/dL (0-200) LDL Cholesterol, Calculated 116 mg/dL (0-100) VLDL Cholesterol, Calculated 9 mg/dL (0-40) Non-HDL Cholesterol Calculated 125 mg/dL (0-129) HDL Cholesterol 41 mg/dL (40-60) Cholesterol/HDL Ratio 4.0 Test 02/05/20 18:15 Troponin I Quantitative < 0.017 ng/mL (0.000-0.055) Laboratory Tests Test 02/05/20 12:30 02/05/20 18:15 Troponin I Quantitative < 0.017 ng/mL (0.000-0.055) < 0.017 ng/mL (0.000-0.055) Medications Active Scripts Medications Dose Route/Sig Max Daily Dose Days Date Category Hydrocodone-Apap 5-325 (Hydrocodone Bit/Acetaminophen) 1 Tab Tablet 1 Tab PO PRN Q6HRS PRN 01/14/20 Rx Zithromax (Azithromycin) 250 Mg Tablet 250 Mg PO DAILY 3 07/04/19 Rx Cefdinir 300 Mg Capsule 1 Cap PO BID 7 07/04/19 Rx Oxycontin (Oxycodone HCl) 30 Mg Tab.er.12h 1 Tab PO BID MDD 2 Tablet(s) 30 07/02/19 Reported Xanax (Alprazolam) 0.25 Mg Tablet 0.25 Mg PO PRN Q6HRS PRN 5 09/25/17 Rx Oxycodone Hcl 20 Mg Tablet 20 Mg PO PRN Q6HRS PRN 09/22/17 Reported Alprazolam 0.25 Mg Tablet 0.25 Mg PO PRN Q8HRS PRN 10 07/21/17 Rx [Nicotine] 1 PATCH Patch 1 Patch TD DAILY 03/31/14 Rx Proair Hfa Inhaler (Albuterol Sulfate) 8.5 Gm Hfa.aer.ad 2 Puff IH PRN Q4HRS PRN 03/29/14 Reported Albuterol Sulfate Conc Neb Soln (Albuterol Sulfate) 2.5 Mg/0.5 Ml Vial.neb 2.5 Mg NEB QID 03/29/14 Reported Dulera 200 Mcg/5 Mcg Inhaler (Mometasone/Formoterol) 13 Gm Hfa.aer.ad 2 Puff IH BID 03/29/14 Reported Norvasc (Amlodipine Besylate) 5 Mg Tablet 10 Mg PO BID 03/29/14 Reported Cozaar (Losartan Potassium) 100 Mg Tablet 100 Mg PO DAILY 03/29/14 Reported Impression . 1. Acute respiratory failure secondary to acute exacerbation of chronic obstructive pulmonary disease, acute bronchitis, Less likely COVID-19. 2. Acute exacerbation of chronic obstructive pulmonary disease. 3. Acute bronchitis. 4. Tobacco habituation. 5. Hypertension. Plan . 1. I have discussed smoking cessation with her in detail. I have advised her to stop smoking forever. 2. Continue Solu-Medrol. Monitor blood sugar. 3. Continue antibiotic. 4. Follow COVID-19 testing. If negative, start bronchodilator. 5. Lovenox for DVT prophylaxis. 6. CTA chest neg for PE/ infiltrates Thank you very much for allowing me to participate in the care of this very nice lady. SAVANA HAHN MD Feb 06, 2020 11:59
--- NOTE | 2020-02-06 13:18 | PDOC ---
[facility] [facility] PROGRESS NOTE Date of Service DOS: DATE: 02/06/20 TIME: 13:15 Chief Complaint Chief Complaint Acute respiratory failure secondary to acute exacerbation of chronic obstructive pulmonary disease, acute bronchitis, Less likely COVID-19. Acute exacerbation of chronic obstructive pulmonary disease. Acute bronchitis. Tobacco habituation. Hypertension. History of Present Illness History of Present Illness Ms Villalta is a 59yo F w/ PMhx COPD, smoker who is admitted for worsening shortness of breath and chest discomfort. Had troponin and EKG negative. CTPA negative for PE. Consults: Pulm, cardiology Still with some wheezing. Her cough has improved. Is asking for prescription cough syrup at home. Chest pain improved. COVID 19 testing pending, however she is not hypoxic on room air despite having home O2 needs, she notes she only uses at night and PRN. She is amenable to smoking cessation and advised she cannot smoke with O2 at the home. Changed to PO augmentin + doxy and prednisone in preparation for d/c home. Vitals/I&O Vitals/I&O: Vital Signs Date Time Temp Pulse Resp B/P (MAP) Pulse Ox O2 Delivery O2 Flow Rate FiO2 02/06/20 12:10 92 Room Air 02/06/20 11:15 97.7 80 16 152/76 (101) 97.7 02/06/20 10:00 92.0 I & O 02/05/20 02/05/20 02/06/20 15:00 23:00 07:00 Intake Total 580 ml 350 ml 1880 ml Balance 580 ml 350 ml 1880 ml Physical Exam General: Alert, Oriented X3, Cooperative Lungs: Wheezing Extremities: No cyanosis Labs Labs: Laboratory Tests Test 02/05/20 18:15 Troponin I Quantitative < 0.017 ng/mL (0.000-0.055) Assessment and Plan Assessmemt and Plan Problems Medical Problems: (1) Chest pain Status: Acute (2) Person under investigation for COVID-19 Status: Acute (3) Shortness of breath Status: Acute Comment Review of Relevant I have reviewed the following items tari (where applicable) has been applied. Medications: Current Medications Medications (Trade) Dose Ordered Sig/Michelle Route PRN Reason Start Time Stop Time Status Last Admin Dose Admin Methylprednisolone Sodium Succinate (SOLU-Medrol 125MG VIAL) 80 mg Q8HRS IV 02/05/20 14:00 02/06/20 06:20 Enoxaparin Sodium (Lovenox 40mg Syringe) 40 mg Q24H SQ 02/05/20 14:00 02/05/20 14:12 Lactobacillus Rhamnosus (Culturelle) 1 cap BID PO 02/05/20 21:00 02/06/20 08:28 Justicifation of Admission Dx: Justifications for Admission: Justification of Admission Dx: N/A GAMALIEL PETTY MD Feb 06, 2020 13:18
[2020-02-06] MEDS: AZITHROMYCIN 500 MG in IV NORMAL SALINE 250ML 250 ML IV SCH (14:02)
[2020-02-06] MEDS: ENOXAPARIN 40 MG/0.4 ML SYRINGE. SQ SCH (14:05)
[2020-02-06] MEDS: ALPRAZolam 0.25 MG TABLET PO PRN (14:05)
[2020-02-06] MEDS ORDERED: AMOX1TAB61 PO (14:12)
[2020-02-06] MEDS ORDERED: PRED50TA PO (14:12)
[2020-02-06] MEDS ORDERED: D-ME473S14 PO (14:12)
[2020-02-06] MEDS ORDERED: AZIT250T6 PO (14:13)
[2020-02-06 15:16] VITALS: BP 148/73
--- NOTE | 2020-02-06 17:11 | NUR ---
PUI education given, incentive spirometer taken and practiced before leaving. IV and telemonitor off patient. Pt escorted out to main entrance by Anjali MADRID by wheelchair. Prescription sent to pharmacy on file.
--- NOTE | 2020-02-06 17:33 | NUR ---
SW following. Reviewed chart and discussed with RN. SW referral for advanced directives. SW provided pt with POA for HC forms and encouraged completion. Pt from home with family. Pt to discharge home today self-care on room air and oral medications. No further SW needs at this time.
--- NOTE | 2020-02-06 22:15 | PDOC3 ---
Discharge Summary Visit Information Date of Admission: Feb 04, 2020 Date of Discharge: Feb 06, 2020 Admitting Diagnosis: Chest pain Final Diagnosis Problems Medical Problems: (1) Chest pain Status: Acute (2) Person under investigation for COVID-19 Status: Acute (3) Shortness of breath Status: Acute Brief Hospital Course Allergies Allergies Coded Allergies Type Severity Reaction Last Updated Verified No Known Drug Allergies 07/20/17 No Vital Signs Vital Signs Date Time Temp Pulse Resp B/P (MAP) Pulse Ox O2 Delivery O2 Flow Rate FiO2 02/06/20 15:16 97.4 80 18 148/73 (98) 92 Room Air 97.4 02/06/20 10:00 92.0 Lab Results Laboratory Tests Test 02/05/20 04:00 02/05/20 12:30 02/05/20 18:15 Troponin I Quantitative < 0.017 ng/mL (0.000-0.055) < 0.017 ng/mL (0.000-0.055) < 0.017 ng/mL (0.000-0.055) Triglycerides Level 47 mg/dL (0-150) Cholesterol Level 166 mg/dL (0-200) LDL Cholesterol, Calculated 116 mg/dL (0-100) VLDL Cholesterol, Calculated 9 mg/dL (0-40) Non-HDL Cholesterol Calculated 125 mg/dL (0-129) HDL Cholesterol 41 mg/dL (40-60) Cholesterol/HDL Ratio 4.0 Brief Hospital Course Ms Villalta is a 59yo F w/ PMhx COPD, smoker who is admitted for worsening shortness of breath and chest discomfort. Had troponin x4 and EKG negative. CTPA negative for PE. Consults: Pulm, cardiology Still with some wheezing. Her cough has improved. Is asking for prescription cough syrup at home. Chest pain improved. COVID 19 testing pending, however she is not hypoxic on room air despite having home O2 needs, she notes she only uses at night and PRN. She is amenable to smoking cessation and advised she cannot smoke with O2 at the home. Changed to PO augmentin + doxy and prednisone in preparation for d/c home. Problem list: Acute respiratory failure secondary to acute exacerbation of chronic obstructive pulmonary disease, acute bronchitis, Less likely COVID-19. Acute exacerbation of chronic obstructive pulmonary disease. Acute bronchitis. Tobacco habituation. Hypertension. Greater than 30 minutes spent on d/c. She will self-quarantine at home unless CO VID 19 results return negative, will f/u call with results. Discharge Information Condition at Discharge: Improved Follow Up: Weeks (1) Disposition/Orders: D/C to Home Scheduled Albuterol Sulfate (Albuterol Sulfate Conc Neb Soln) 2.5 Mg/0.5 Ml Vial.neb, 2.5 MG NEB QID for FOR ASTHMA, Ref 0 (Reported) Entered as Reported by: Atif Pate on 03/29/141938 Last Taken: Unknown Dose on Unknown Date & Time Last Action: Converted on 02/05/20504 by GRETTA TALBOT RN Amlodipine Besylate (Norvasc) 5 Mg Tablet, 10 MG PO BID, (Reported) Entered as Reported by: Atif Pate on 03/29/141938 Last Taken: Unknown Dose on 02/04/206 Last Action: Continued on 02/05/20504 by GRETTA TALBOT RN Amoxicillin/Potassium Clav (Augmentin 875-125 Tablet) 1 Each Tablet, 1 TAB PO BID for Bronchitis for 5 Days, #10 Ref 0 Prescribed by: GAMALIEL PETTY MD on 02/06/20 1412 Azithromycin (Azithromycin Tablet) 250 Mg Tablet, 1 PKG PO UD for Bronchitis for 5 Days, #6 Ref 0 2 the first day followed by 1 for days 2-5 Prescribed by: GAMALIEL PETTY MD on 02/06/20 1413 Losartan Potassium (Cozaar) 100 Mg Tablet, 100 MG PO DAILY, (Reported) Entered as Reported by: Atif Pate on 03/29/141938 Last Taken: Unknown Dose on 02/04/206 Last Action: Converted on 02/05/20504 by GRETTA TALBOT RN Mometasone/Formoterol (Dulera 200 Mcg/5 Mcg Inhaler) 13 Gm Hfa.aer.ad, 2 PUFF IH BID, #13 Ref 3 (Reported) Entered as Reported by: Atif Pate on 03/29/141938 Last Taken: Unknown Dose on Unknown Date & Time Last Action: Converted on 02/05/20504 by GRETTA TALBOT RN Oxycodone Hcl (Oxycontin) 30 Mg Tab.er.12h, 1 TAB PO BID for pain MDD 2 Tablet(s) for 30 Days, #60 Ref 0 (Reported) Entered as Reported by: JONO MIRANDA RN on 07/02/19 1014 Last Taken: Unknown Dose on 02/04/20 0007 Last Action: Converted on 02/05/20504 by GRETTA TALBOT RN Prednisone (Prednisone) 50 Mg Tablet, 1 TAB PO DAILY for COPD for 5 Days, #5 Prescribed by: GAMALIEL PETTY MD on 02/06/20 1412 [Nicotine] 1 PATCH PATCH, 1 PATCH TD DAILY, #30 Prescribed by: LUIZ BENDER on 03/31/14 0954 Last Action: Converted on 02/05/20504 by GRETTA TALBOT RN Scheduled PRN Albuterol Sulfate (Proair Hfa Inhaler) 8.5 Gm Hfa.aer.ad, 2 PUFF IH PRN Q4HRS PRN for COUGH, #1 (Reported) Entered as Reported by: Atif Pate on 03/29/14 1939 Last Taken: Unknown Dose on Unknown Date & Time Last Action: Continued on 02/05/20504 by GRETTA TALBOT RN Alprazolam (Alprazolam) 0.25 Mg Tablet, 0.25 MG PO PRN Q8HRS PRN for ANXIETY / AGITATION for 10 Days Prescribed by: LUIZ BENDER on 07/21/17 1038 Last Taken: Unknown Dose on Unknown Date & Time Last Action: Continued on 02/05/20504 by GRETTA TALBOT RN Oxycodone Hcl (Oxycodone Hcl) 20 Mg Tablet, 20 MG PO PRN Q6HRS PRN for PAIN, (Reported) Entered as Reported by: DANYELL MENDOSA on 09/22/17 1706 Last Taken: Unknown Dose on 02/04/20 1230 Last Action: Converted on 02/05/20504 by GRETTA TALBOT RN Promethazine/Dextromethorphan (Promethazine-Dm Syrup) 473 Ml Syrup, 5 ML PO PRN Q6HRS PRN for cough for 6 Days, #120 Ref 0 Prescribed by: GAMALIEL PETTY MD on 02/06/20 1412 Discontinued Medications Alprazolam (Xanax) 0.25 Mg Tablet, 0.25 MG PO PRN Q6HRS PRN for ANXIETY / AGITATION for 5 Days, Ref 0 Prescribed by: LUIZ BENDER on 09/25/17 1029 Azithromycin (Zithromax) 250 Mg Tablet, 250 MG PO DAILY for ANTI-BIOTIC for 3 Days, #3 Ref 0 Prescribed by: FRANK BARRAGAN on 07/04/19909 Last Taken: Unknown Dose on Unknown Date & Time Last Action: HELD on 02/05/20 120 by GAIL VILLA MD Cefdinir (Cefdinir) 300 Mg Capsule, 1 CAP PO BID for cap for 7 Days, #14 Prescribed by: FRANK BARRAGAN on 07/04/19909 Last Taken: Unknown Dose on Unknown Date & Time Last Action: HELD on 02/05/201203 by GAIL VILLA MD Hydrocodone Bit/Acetaminophen (Hydrocodone-Apap 5-325 ) 1 Tab Tablet, 1 TAB PO PRN Q6HRS PRN for PAIN, #10 Ref 0 Prescribed by: BETTY MCCALL APRN on 01/14/20 9697 Last Taken: Unknown Dose on Unknown Date & Time Last Action: Last Taken Edited on 02/05/20 0150 by GRETTA TALBOT RN Justicifation of Admission Dx: Justifications for Admission: Justification of Admission Dx: N/A GAMALIEL PETTY MD Feb 06, 2020 22:14
--- NOTE | 2020-02-07 10:07 | NUR ---
IP: Attempted to call pt the negative COVID results. Left a voicemail to return my call.
== END 2020-02-06 17:10 | disposition home or self-care (01) | DRG 189 ==
LOC: ER 21:08 → 6 SOUTH 23:05
PROVIDERS: ADMIT Family Medicine; ATTEND Family Medicine
DX: J96.00 Acute respiratory failure, unspecified whether with hypoxia or hypercapnia (principal); J44.1 Chronic obstructive pulmonary disease with (acute) exacerbation; J98.11 Atelectasis; J44.0 Chronic obstructive pulmonary disease with (acute) lower respiratory infection; J20.9 Acute bronchitis, unspecified; F17.210 Nicotine dependence, cigarettes, uncomplicated; I10 Essential (primary) hypertension; Z20.828 Contact with and (suspected) exposure to other viral communicable diseases; Z82.49 Family history of ischemic heart disease and other diseases of the circulatory system; Z82.5 Family history of asthma and other chronic lower respiratory diseases; Z96.659 Presence of unspecified artificial knee joint; M10.9 Gout, unspecified; M19.90 Unspecified osteoarthritis, unspecified site
CPT/HCPCS: 36415; 71045; 71275; 72125; 80053; 80061; 82553; 82728; 83690; 83735; 83880; 84484; 85025; 85379; 85610; 85730; 86140; 93005; 96374; 96375; 99406; J0456; J1650; J2543; J2930; J3010; J7050; Q9967; 99285-25; G0378; J7030; U0003-CS